=== PATIENT | female | born 1930 | race Caucasian/White ===

== ENCOUNTER 2016-10-04 13:32 | Emergency (ER) | payer MEDICARE ==
[~2016-10-04] VITALS: Ht 160 cm; Wt 42.0 kg
[~2016-10-04 13:32] MED LIST: AMLO5TAB2 PO; CEFD300C37 PO; CHLO25TA PO; CLON0.1T PO; NEBI20TA2 PO; POTA10TA90 PO; TELM80TA5 PO
[2016-10-04] MEDS ORDERED: SODIUM CHLORIDE 0.9% 1,000ML IVBOLUS ONE (14:00)
[2016-10-04] MEDS ORDERED: SODIUM CHLORIDE FLUSH 10ML SYR IVF ONE (14:00)
[2016-10-04 14:44] LABS: BLOOD UREA NITROGEN 19 mg/dL (7-18)
[2016-10-04 14:49] LABS: ASPARTATE AMINO TRANSFERASE 33 U/L (15-37)
[2016-10-04 14:50] LABS: IS PT STATUS REG ER OR PRE ER? YES
[2016-10-04 15:54] LABS: PATH.CAST-FLAG NOT PRESENT; SPERM-FLAG NOT PRESENT; SRC-FLAG NOT PRESENT; XTAL-FLAG NOT PRESENT; YLC-FLAG NOT PRESENT
[2016-10-04 16:53] VITALS: BP 178/78
[2016-10-04] MEDS ORDERED: hydrALAzine 20 MG/ML, 1ML ONE (17:00)
[2016-10-04] MEDS ORDERED: hydrALAzine 20 MG/ML, 1ML IV ONE (17:00)
[2016-10-04] MEDS ORDERED: CEFDINIR 300 MG CAPSULE PO ONE (17:30)
== END 2016-10-04 17:51 | disposition left against medical advice (07) ==
LOC: ED 15:14
DX: R53.1 Weakness (principal); N39.0 Urinary tract infection, site not specified; R41.82 Altered mental status, unspecified; I10 Essential (primary) hypertension; R51 Headache
CPT/HCPCS: 36415; 70450; 71010; 80053; 81001; 84484; 85025; 87086; 93005; 96374; 99285; J0360; J7030

== ENCOUNTER 2016-12-08 11:31 | Inpatient (IN) | payer MEDICARE ==
[~2016-12-08] VITALS: Ht 160 cm; Wt 44.3 kg
[~2016-12-08 11:31] MED LIST changes: +POTA10TA6 PO; -POTA10TA90 PO
[2016-12-08] MEDS ORDERED: SODIUM CHLORIDE 0.9% 1,000 ML IV ONE ×2 (12:59→14:16)
[2016-12-08] MEDS ORDERED: SODIUM CHLORIDE 0.9% 1,000ML IVBOLUS ONE (13:00)
[2016-12-08] MEDS ORDERED: SODIUM CHLORIDE FLUSH 10ML SYR IVF ONE (13:00)
[2016-12-08 13:23] LABS: HEMATOCRIT 43.5 % (34.6-47.8); HEMOGLOBIN 14.9 g/dL (11.7-16.4); WHITE BLOOD COUNT 6.7 x10^3/uL (3.4-10)
[2016-12-08 13:36] LABS: ASPARTATE AMINO TRANSFERASE 37 U/L (15-37); BLOOD UREA NITROGEN 23 mg/dL (7-18)
[2016-12-08 14:01] LABS: PATH.CAST-FLAG NOT PRESENT; SPERM-FLAG NOT PRESENT; SRC-FLAG NOT PRESENT; XTAL-FLAG NOT PRESENT; YLC-FLAG NOT PRESENT
[2016-12-08] MEDS ORDERED: CEFTRIAXONE PMX 1GM/50ML 50 ML IV ONE (14:30)
[2016-12-08] MEDS ORDERED: SODIUM CHLORIDE FLUSH 10ML SYR IVF PRN (14:30)
[2016-12-08] MEDS ORDERED: CEFTRIAXONE PMX 1GM/50ML 50 ML ONE (14:48)
[2016-12-08] MEDS: AMPICILLIN/SULBACTAM 3 GM in SODIUM CHLORIDE 0.9% 100 ML IV SCH ×2 (16:00→22:16)
[2016-12-08] MEDS ORDERED: ENOXAPARIN 40 MG/0.4 ML SQ SCH (16:00)
[2016-12-08] MEDS ORDERED: ENALAPRILAT 1.25 MG/ML, 2ML IVPush PRN (16:00)
[2016-12-08] MEDS ORDERED: ONDANSETRON ODT 4 MG PO PRN (16:00)
[2016-12-08] MEDS ORDERED: ACETAMINOPHEN 325 MG TABLET PO PRN (16:00)
[2016-12-08 20:56] VITALS: BP 169/90
[2016-12-08] MEDS: DOCUSATE 100 MG CAPSULE PO PRN (20:59)
[2016-12-08] MEDS: NEBIVOLOL HCL 5 MG TABLET PO SCH (20:59)
[2016-12-08] MEDS: TEMAZEPAM 15 MG CAPSULE PO PRN (21:02)
[2016-12-08 21:20] VITALS: BP 169/90
[2016-12-09 01:08] VITALS: BP 173/92
[2016-12-09] MEDS: LABETALOL 5MG/ML, 20ML IVPush PRN ×2 (01:44→08:16)
[2016-12-09 03:00] VITALS: BP 169/89
[2016-12-09] MEDS: AMPICILLIN/SULBACTAM 3 GM in SODIUM CHLORIDE 0.9% 100 ML IV SCH ×4 (04:40→21:49)
[2016-12-09 08:08] VITALS: BP 179/83
[2016-12-09 08:10] LABS: BLOOD UREA NITROGEN 14 mg/dL (7-18)
[2016-12-09] MEDS: AMLODIPINE 2.5 MG TABLET PO SCH (08:17)
[2016-12-09] MEDS: VALSARTAN 80 MG TABLET PO SCH (08:17)
[2016-12-09 14:00] VITALS: BP 149/93
[2016-12-09] MEDS ORDERED: ENOXAPARIN 30 MG/0.3 ML SQ SCH (16:00)
[2016-12-09] MEDS: POTASSIUM CHLORIDE 20 MEQ TAB.ER.PRT PO SCH (16:13)
[2016-12-09 21:59] VITALS: BP 188/102
[2016-12-09] MEDS: DOCUSATE 100 MG CAPSULE PO PRN (22:01)
[2016-12-09] MEDS: NEBIVOLOL HCL 5 MG TABLET PO SCH (22:01)
[2016-12-09] MEDS: TEMAZEPAM 15 MG CAPSULE PO PRN (22:01)
[2016-12-10 02:15] VITALS: BP 163/90
[2016-12-10] MEDS: AMPICILLIN/SULBACTAM 3 GM in SODIUM CHLORIDE 0.9% 100 ML IV SCH ×2 (04:42→09:41)
[2016-12-10 09:27] VITALS: BP 185/85
[2016-12-10] MEDS: AMLODIPINE 2.5 MG TABLET PO SCH (09:38)
[2016-12-10] MEDS: VALSARTAN 80 MG TABLET PO SCH (09:38)
[2016-12-10] MEDS: POTASSIUM CHLORIDE 20 MEQ TAB.ER.PRT PO SCH (09:39)
[2016-12-10] MEDS ORDERED: VALS80TA3 PO (10:41)
[2016-12-10] MEDS ORDERED: AMLO5TAB2 PO (10:41)
[2016-12-10] MEDS ORDERED: AMOX1TAB64 PO (10:41)
[2016-12-10 12:00] VITALS: BP 156/79
[2016-12-10 12:50] VITALS: BP 170/73
== END 2016-12-10 14:35 | disposition home health service (06) | DRG 593 ==
LOC: ED 13:27 → EDIP 14:16 → 3WST 20:14 → 3NE 12-10 11:46
PROVIDERS: ADMIT Hospitalist; ATTEND Hospitalist
DX: L97.819 Non-pressure chronic ulcer of other part of right lower leg with unspecified severity (principal); N39.0 Urinary tract infection, site not specified; F03.90 Unspecified dementia, unspecified severity, without behavioral disturbance, psychotic disturbance, mood disturbance, and anxiety; E44.1 Mild protein-calorie malnutrition; E87.1 Hypo-osmolality and hyponatremia; J44.9 Chronic obstructive pulmonary disease, unspecified; I10 Essential (primary) hypertension; E87.6 Hypokalemia; Z85.118 Personal history of other malignant neoplasm of bronchus and lung; Z91.81 History of falling; Z90.49 Acquired absence of other specified parts of digestive tract; Z90.710 Acquired absence of both cervix and uterus; Z79.899 Other long term (current) drug therapy
CPT/HCPCS: 36415; 80048; 80053; 81001; 83605; 84145; 85025; 87040; 87086; 93922; 96360; 96361; J0295; J0696; J1650; Q0162; J7030

== ENCOUNTER → 2016-12-15 | Outpatient (CLI) | payer MEDICARE ==
[~2016-12-15] MED LIST changes: +AMOX1TAB64 PO; +VALS80TA3 PO
== END | disposition home or self-care (01) ==
LOC: WOUND 08:27
PROVIDERS: ATTEND Family Medicine
DX: L97.212 Non-pressure chronic ulcer of right calf with fat layer exposed (principal); I83.813 Varicose veins of bilateral lower extremities with pain; F03.90 Unspecified dementia, unspecified severity, without behavioral disturbance, psychotic disturbance, mood disturbance, and anxiety; J44.9 Chronic obstructive pulmonary disease, unspecified; I10 Essential (primary) hypertension; Z90.710 Acquired absence of both cervix and uterus
CPT/HCPCS: 97597; G0463; 99215; WOU0463

== ENCOUNTER → 2016-12-22 | Outpatient (CLI) | payer MEDICARE | END | disposition home or self-care (01) | LOC: WOUND 10:59 | PROVIDERS: ATTEND Physician Assistant | DX: L97.212 Non-pressure chronic ulcer of right calf with fat layer exposed (principal); I83.813 Varicose veins of bilateral lower extremities with pain; F03.90 Unspecified dementia, unspecified severity, without behavioral disturbance, psychotic disturbance, mood disturbance, and anxiety; Z90.710 Acquired absence of both cervix and uterus; J44.9 Chronic obstructive pulmonary disease, unspecified; I10 Essential (primary) hypertension | CPT/HCPCS: G0463; WOU0463 ==

== ENCOUNTER 2017-02-10 11:14 | Emergency (ER) | payer MEDICARE ==
[~2017-02-10] VITALS: Ht 160 cm; Wt 43.0 kg
[2017-02-10 11:21] VITALS: BP 147/91
[2017-02-10] MEDS ORDERED: SODIUM CHLORIDE FLUSH 10ML SYR IVF ONE (12:30)
[2017-02-10 12:53] LABS: HEMATOCRIT 40.8 % (34.6-47.8); HEMOGLOBIN 13.7 g/dL (11.7-16.4); WHITE BLOOD COUNT 10.9 x10^3/uL (3.4-10)
[2017-02-10] MEDS ORDERED: SODIUM CHLORIDE 0.9% 1,000ML IVBOLUS ONE (13:00)
[2017-02-10] MEDS ORDERED: AMPICILLIN/SULBACTAM 3 GM in SODIUM CHLORIDE 0.9% 100 ML IV ONE (13:00)
[2017-02-10 13:33] LABS: BLOOD UREA NITROGEN 16 mg/dL (7-18)
== END 2017-02-10 16:59 | disposition home or self-care (01) ==
LOC: ED 14:06
DX: S81.851A Open bite, right lower leg, initial encounter (principal); L03.818 Cellulitis of other sites; L03.115 Cellulitis of right lower limb; I10 Essential (primary) hypertension; E87.6 Hypokalemia; E87.1 Hypo-osmolality and hyponatremia; Z90.710 Acquired absence of both cervix and uterus; W55.01XA Bitten by cat, initial encounter; Y93.89 Activity, other specified; Y92.89 Other specified places as the place of occurrence of the external cause; Y99.9 Unspecified external cause status
CPT/HCPCS: 36415; 73590; 80048; 82040; 85025; 96374; 99285; J0295; J7030

== ENCOUNTER 2017-02-12 11:57 | Inpatient (IN) | payer MEDICARE ==
[~2017-02-12] VITALS: Ht 160 cm; Wt 52.4 kg
[2017-02-12] MEDS ORDERED: SODIUM CHLORIDE FLUSH 10ML SYR IVF ONE (13:30)
[2017-02-12] MEDS ORDERED: SODIUM CHLORIDE 0.9% 1,000ML IVBOLUS ONE (13:30)
[2017-02-12 14:09] LABS: HEMATOCRIT 38.6 % (34.6-47.8); HEMOGLOBIN 13.3 g/dL (11.7-16.4); WHITE BLOOD COUNT 8.1 x10^3/uL (3.4-10)
[2017-02-12 14:38] LABS: ASPARTATE AMINO TRANSFERASE 28 U/L (15-37); BLOOD UREA NITROGEN 21 mg/dL (7-18)
[2017-02-12] MEDS ORDERED: LORazepam 1MG TABLET ONE (17:08)
[2017-02-12] MEDS ORDERED: LORazepam 1MG TABLET PO ONE (17:30)
[2017-02-12] MEDS ORDERED: SODIUM CHLORIDE FLUSH 10ML SYR IVF PRN (17:30)
[2017-02-12] MEDS ORDERED: POLYETHYLENE GLYCOL 17 GM PACKET PO PRN (18:30)
[2017-02-12] MEDS ORDERED: BISACODYL 10 MG SUPP PR PRN (18:30)
[2017-02-12] MEDS ORDERED: ENALAPRILAT 1.25 MG/ML, 2ML IVPush PRN (18:30)
[2017-02-12] MEDS ORDERED: DOCUSATE 100 MG CAPSULE PO PRN (18:30)
[2017-02-12 18:38] VITALS: BP 183/83
[2017-02-12] MEDS: SODIUM CHLORIDE 0.9% 1,000 ML IV SCH (18:38)
[2017-02-12] MEDS: ENOXAPARIN 40 MG/0.4 ML SQ SCH (21:00)
[2017-02-12] MEDS: AMPICILLIN/SULBACTAM 1,500 MG in SODIUM CHLORIDE 0.9% 50 ML IV SCH (21:06)
[2017-02-12 21:10] VITALS: BP 183/83
[2017-02-12 21:15] LABS: PATH.CAST-FLAG NOT PRESENT; SPERM-FLAG NOT PRESENT; SRC-FLAG NOT PRESENT; XTAL-FLAG NOT PRESENT; YLC-FLAG NOT PRESENT
[2017-02-13] MEDS ORDERED: LORazepam 1MG TABLET PO ONE (00:30)
[2017-02-13 02:00] VITALS: BP 188/90
[2017-02-13 04:51] LABS: HEMATOCRIT 34.2 % (34.6-47.8); HEMOGLOBIN 11.8 g/dL (11.7-16.4); WHITE BLOOD COUNT 5.8 x10^3/uL (3.4-10)
[2017-02-13 04:54] LABS: BLOOD UREA NITROGEN 14 mg/dL (7-18)
[2017-02-13] MEDS: AMPICILLIN/SULBACTAM 1,500 MG in SODIUM CHLORIDE 0.9% 50 ML IV SCH ×2 (04:56→13:03)
[2017-02-13 05:05] LABS: ASPARTATE AMINO TRANSFERASE 20 U/L (15-37)
[2017-02-13 07:20] VITALS: BP 178/81
[2017-02-13] MEDS: NEBIVOLOL HCL 5 MG TABLET PO SCH ×2 (08:33→08:42)
[2017-02-13] MEDS: AMLODIPINE 5 MG TABLET PO SCH ×2 (08:33→08:42)
[2017-02-13] MEDS: SODIUM CHLORIDE 0.9% 1,000 ML IV SCH (08:34)
[2017-02-13] MEDS: NEUTRA PHOS K 250 MG TABLET PO SCH ×3 (08:40→21:10)
[2017-02-13] MEDS ORDERED: NEBIVOLOL HCL 5 MG TABLET PO SCH (09:00)
[2017-02-13] MEDS ORDERED: AMLODIPINE 5 MG TABLET PO SCH (09:00)
[2017-02-13 13:45] VITALS: BP 164/70
[2017-02-13] MEDS ORDERED: LORazepam 0.5MG TABLET ONE (17:58)
[2017-02-13] MEDS ORDERED: LORazepam 0.5MG TABLET PO ONE (18:00)
[2017-02-13] MEDS: ACETAMINOPHEN 325 MG TABLET PO PRN (18:07)
[2017-02-13 18:40] VITALS: BP 167/83
[2017-02-13] MEDS: ENOXAPARIN 40 MG/0.4 ML SQ SCH (20:48)
[2017-02-13] MEDS: AMOXICILLIN/CLAV 875-125MG TABLET PO SCH (21:10)
[2017-02-14 01:32] VITALS: BP 155/83
[2017-02-14 04:50] LABS: HEMATOCRIT 35.4 % (34.6-47.8); HEMOGLOBIN 12.1 g/dL (11.7-16.4); WHITE BLOOD COUNT 5.2 x10^3/uL (3.4-10)
[2017-02-14 04:59] LABS: BLOOD UREA NITROGEN 12 mg/dL (7-18)
[2017-02-14 08:06] VITALS: BP 164/85
[2017-02-14] MEDS: AMOXICILLIN/CLAV 875-125MG TABLET PO SCH ×2 (10:48→21:36)
[2017-02-14] MEDS: NEBIVOLOL HCL 5 MG TABLET PO SCH (10:48)
[2017-02-14] MEDS: AMLODIPINE 5 MG TABLET PO SCH (10:48)
[2017-02-14 13:46] VITALS: BP 145/75
[2017-02-14] MEDS: ACETAMINOPHEN 325 MG TABLET PO PRN (15:28)
[2017-02-14] MEDS ORDERED: POTASSIUM CHLORIDE 20 MEQ TAB.ER.PRT PO ONE (16:00)
[2017-02-14 16:38] LABS: BLOOD UREA NITROGEN 15 mg/dL (7-18)
[2017-02-14 16:43] LABS: HEMATOCRIT 34.8 % (34.6-47.8); HEMOGLOBIN 12.1 g/dL (11.7-16.4)
[2017-02-14 18:48] VITALS: BP 135/75
[2017-02-14] MEDS: ENOXAPARIN 40 MG/0.4 ML SQ SCH (21:00)
[2017-02-14] MEDS: metroNIDAZOLE 500 MG TABLET PO SCH (21:36)
[2017-02-15 01:40] VITALS: BP 134/80
[2017-02-15 03:58] LABS: WHITE BLOOD COUNT 5.8 x10^3/uL (3.4-10)
[2017-02-15 04:14] LABS: BLOOD UREA NITROGEN 13 mg/dL (7-18)
[2017-02-15 06:42] VITALS: BP 160/84
[2017-02-15] MEDS: NEBIVOLOL HCL 5 MG TABLET PO SCH (09:14)
[2017-02-15] MEDS: metroNIDAZOLE 500 MG TABLET PO SCH ×2 (09:14→20:26)
[2017-02-15] MEDS: ACETAMINOPHEN 325 MG TABLET PO PRN (09:14)
[2017-02-15] MEDS: AMLODIPINE 5 MG TABLET PO SCH (09:14)
[2017-02-15] MEDS: AMOXICILLIN/CLAV 875-125MG TABLET PO SCH ×2 (09:14→20:26)
[2017-02-15 14:00] VITALS: BP 130/69
[2017-02-15 19:13] VITALS: BP 143/81
[2017-02-15] MEDS: LORazepam 1MG TABLET PO PRN (19:36)
[2017-02-15] MEDS: ENOXAPARIN 40 MG/0.4 ML SQ SCH (20:28)
[2017-02-16 04:19] VITALS: BP 136/72
[2017-02-16 05:24] LABS: HEMATOCRIT 37.6 % (34.6-47.8); HEMOGLOBIN 13.1 g/dL (11.7-16.4); WHITE BLOOD COUNT 6.4 x10^3/uL (3.4-10)
[2017-02-16 05:32] LABS: BLOOD UREA NITROGEN 13 mg/dL (7-18)
[2017-02-16 08:00] VITALS: BP 161/85
[2017-02-16] MEDS: AMOXICILLIN/CLAV 875-125MG TABLET PO SCH ×2 (09:42→21:11)
[2017-02-16] MEDS: NEBIVOLOL HCL 5 MG TABLET PO SCH (09:43)
[2017-02-16] MEDS: AMLODIPINE 5 MG TABLET PO SCH (09:43)
[2017-02-16] MEDS: metroNIDAZOLE 500 MG TABLET PO SCH ×2 (09:43→21:11)
[2017-02-16] MEDS: ACETAMINOPHEN 325 MG TABLET PO PRN (11:12)
[2017-02-16 14:00] VITALS: BP 139/77
[2017-02-16] MEDS: LORazepam 1MG TABLET PO PRN (17:27)
[2017-02-16 20:01] VITALS: BP 130/78
[2017-02-16] MEDS: ENOXAPARIN 40 MG/0.4 ML SQ SCH (21:00)
[2017-02-17 00:20] VITALS: BP 128/71
[2017-02-17] MEDS: LORazepam 1MG TABLET PO PRN ×2 (01:17→06:22)
[2017-02-17 05:33] LABS: HEMOGLOBIN 12.8 g/dL (11.7-16.4); WHITE BLOOD COUNT 5.6 x10^3/uL (3.4-10)
[2017-02-17 05:37] LABS: BLOOD UREA NITROGEN 15 mg/dL (7-18)
[2017-02-17 06:53] VITALS: BP 126/74
[2017-02-17] MEDS: AMOXICILLIN/CLAV 875-125MG TABLET PO SCH (08:05)
[2017-02-17] MEDS: NEBIVOLOL HCL 5 MG TABLET PO SCH (08:06)
[2017-02-17] MEDS: metroNIDAZOLE 500 MG TABLET PO SCH (08:06)
[2017-02-17] MEDS: AMLODIPINE 5 MG TABLET PO SCH (08:06)
[2017-02-17] MEDS ORDERED: METR500T PO (11:25)
[2017-02-17] MEDS ORDERED: AMLO5TAB2 PO (11:25)
[2017-02-17] MEDS ORDERED: AMOX1TAB12 PO (11:25)
[2017-02-17] MEDS ORDERED: NEBI5TAB2 PO (11:25)
[2017-02-17] MEDS ORDERED: ACID1TAB3 PO (11:25)
[2017-02-17 13:27] VITALS: BP 147/74
== END 2017-02-17 20:05 | disposition home health service (06) | DRG 602 ==
LOC: ED 15:12 → EDIP 17:11 → 3NE 18:15
PROVIDERS: ADMIT Internal Medicine; ATTEND Internal Medicine
DX: L03.115 Cellulitis of right lower limb (principal); E43 Unspecified severe protein-calorie malnutrition; B96.89 Other specified bacterial agents as the cause of diseases classified elsewhere; L97.919 Non-pressure chronic ulcer of unspecified part of right lower leg with unspecified severity; F03.90 Unspecified dementia, unspecified severity, without behavioral disturbance, psychotic disturbance, mood disturbance, and anxiety; J44.9 Chronic obstructive pulmonary disease, unspecified; E83.39 Other disorders of phosphorus metabolism; I10 Essential (primary) hypertension; I16.0 Hypertensive urgency; E83.51 Hypocalcemia; E87.6 Hypokalemia; N76.0 Acute vaginitis; Z66 Do not resuscitate; Z85.118 Personal history of other malignant neoplasm of bronchus and lung; Z90.49 Acquired absence of other specified parts of digestive tract; Z90.710 Acquired absence of both cervix and uterus; Z68.20 Body mass index [BMI] 20.0-20.9, adult
CPT/HCPCS: 36415; 80048; 80053; 81001; 83735; 84100; 84439; 84443; 85025; 86480; 87040; 87070; 87077; 87086; 87186; 87205; 96360; J0295; J7030

== ENCOUNTER 2017-03-17 22:20 | Emergency (ER) | payer MEDICARE ==
[~2017-03-17] VITALS: Ht 160 cm; Wt 45.4 kg
[~2017-03-17 22:20] MED LIST changes: +ACID1TAB3 PO; +AMOX1TAB12 PO; +METR500T PO; +NEBI5TAB2 PO
[2017-03-17 23:29] LABS: BASOPHILS # (AUTO) 0.08 x10^3/uL (0-0.1); BASOPHILS % (AUTO) 1 % (0-1); EOSINOPHILS # (AUTO) 0.03 x10^3/uL (0-0.4); EOSINOPHILS % (AUTO) 0 % (1-7); LYMPHOCYTES # (AUTO) 0.88 x10^3/uL (1-3.4); LYMPHOCYTES % (AUTO) 6 % (22-44); MD NO; MEAN CORPUSCULAR HEMOGLOBIN 30.2 pg (27.0-34.8); MEAN CORPUSCULAR HGB CONC 33.7 g/dL (32.4-35.8); MEAN CORPUSCULAR VOLUME 89.6 fL (80-100); MEAN PLATELET VOLUME 7.6 fL (7.4-10.4); MONOCYTES # (AUTO) 1.14 x10^3/uL (0.2-0.8); MONOCYTES % (AUTO) 8 % (2-9); NEUTROPHILS # (AUTO) 12.06 x10^3/uL (1.8-6.8); NEUTROPHILS % (AUTO) 85 % (42-75); PLATELET COUNT 270 x10^3/uL (130-400); RED BLOOD COUNT 4.53 x10^6/uL (3.82-5.3); RED CELL DISTRIBUTION WIDTH 13.8 % (9.6-15.2)
[2017-03-17 23:42] LABS: ALBUMIN 3.8 g/dL (3.4-5.0); ANION GAP 10 mmol/L (5-15); CALCIUM 9.3 mg/dL (8.5-10.1); CHLORIDE 96 mmol/L (98-107); CREATININE 0.83 mg/dL (0.55-1.02)
[2017-03-17 23:46] LABS: TROPONIN I < 0.015 ng/mL (0.000-0.045)
[2017-03-18] MEDS ORDERED: ACETAMINOPHEN 325 MG TABLET PO ONE (00:30)
[2017-03-18 00:31] LABS: MICROSCOPIC AUTO
[2017-03-18 00:37] LABS: CULTURE INDICATED? NO
[2017-03-18 00:37] LABS: RAPID INFLUENZA A Negative (Negative); RAPID INFLUENZA B Negative (Negative)
[2017-03-18] MEDS ORDERED: ACETAMINOPHEN 325 MG TABLET ONE (01:43)
[2017-03-18 01:48] VITALS: BP 140/72
== END 2017-03-18 01:47 | disposition home or self-care (01) ==
LOC: ED 23:55
DX: M79.661 Pain in right lower leg (principal); I10 Essential (primary) hypertension; Z90.49 Acquired absence of other specified parts of digestive tract; Z90.710 Acquired absence of both cervix and uterus
CPT/HCPCS: 36415; 71045; 80048; 81001; 82040; 84484; 85025; 87400; 93005; 99285

== ENCOUNTER 2017-09-11 12:04 | Inpatient (IN) | payer MEDICARE ==
[~2017-09-11] VITALS: Ht 160 cm; Wt 47.3 kg
[2017-09-11] MEDS ORDERED: NEBI20TA2 PO (12:18)
[2017-09-11] MEDS ORDERED: AMLO10TA2 PO (12:18)
[2017-09-11] MEDS ORDERED: ACET325T14 PO (12:18)
[2017-09-11] MEDS ORDERED: VALS80TA3 PO (12:18)
[2017-09-11] MEDS ORDERED: DONE5TAB14 PO (12:18)
[2017-09-11] MEDS ORDERED: LACT-7 PO (12:18)
[2017-09-11 12:55] LABS: BASOPHILS # (AUTO) 0.02 x10^3/uL (0-0.1); BASOPHILS % (AUTO) 0 % (0-1); EOSINOPHILS # (AUTO) 0.02 x10^3/uL (0-0.4); EOSINOPHILS % (AUTO) 0 % (1-7); LYMPHOCYTES # (AUTO) 0.66 x10^3/uL (1-3.4); LYMPHOCYTES % (AUTO) 9 % (22-44); MD NO; MEAN CORPUSCULAR HEMOGLOBIN 29.9 pg (27.0-34.8); MEAN CORPUSCULAR HGB CONC 33.7 g/dL (32.4-35.8); MEAN CORPUSCULAR VOLUME 88.6 fL (80-100); MEAN PLATELET VOLUME 8.1 fL (7.4-10.4); MONOCYTES # (AUTO) 1.01 x10^3/uL (0.2-0.8); MONOCYTES % (AUTO) 14 % (2-9); NEUTROPHILS # (AUTO) 5.55 x10^3/uL (1.8-6.8); NEUTROPHILS % (AUTO) 77 % (42-75); PLATELET COUNT 175 x10^3/uL (130-400); RED BLOOD COUNT 4.81 x10^6/uL (3.82-5.3); RED CELL DISTRIBUTION WIDTH 15.5 % (9.6-15.2)
[2017-09-11 13:04] LABS: ALANINE AMINOTRANSFERASE 30 U/L (12-78); ALBUMIN 3.5 g/dL (3.4-5.0); ANION GAP 8 mmol/L (5-15); CALCIUM 8.8 mg/dL (8.5-10.1); CHLORIDE 105 mmol/L (98-107); CREATININE 0.86 mg/dL (0.55-1.02)
[2017-09-11 13:08] LABS: ALKALINE PHOSPHATASE 122 U/L (45-117); TOTAL PROTEIN 7.5 g/dL (6.4-8.2); TROPONIN I < 0.015 ng/mL (0.000-0.045)
[2017-09-11 13:54] LABS: MICROSCOPIC INDICATED
[2017-09-11 14:03] LABS: CULTURE INDICATED? YES
[2017-09-11] MEDS ORDERED: ACETAMINOPHEN 325 MG TABLET PO PRN (15:00)
[2017-09-11] MEDS ORDERED: ENOXAPARIN 40 MG/0.4 ML SQ SCH (15:00)
[2017-09-11] MEDS ORDERED: DOCUSATE 100 MG CAPSULE PO PRN (15:00)
[2017-09-11] MEDS ORDERED: ONDANSETRON ODT 4 MG PO PRN (15:00)
[2017-09-11] MEDS ORDERED: ENALAPRILAT 1.25 MG/ML, 2ML IV PRN (15:00)
[2017-09-11] MEDS ORDERED: hydrALAzine 20 MG/ML, 1ML IVPush PRN (15:00)
[2017-09-11 15:11] VITALS: BP 181/105
[2017-09-11 15:12] VITALS: BP 181/105
[2017-09-11 15:15] LABS: THYROID STIMULATING HORMONE 3.75 mIU/L (0.358-3.740)
[2017-09-11] MEDS: AMLODIPINE 5 MG TABLET PO SCH (15:56)
[2017-09-11 17:16] VITALS: BP 157/78
[2017-09-11] MEDS: CEFTRIAXONE 1,000 MG in SODIUM CHLORIDE 0.9% 50 ML IV SCH (17:35)
[2017-09-11 20:00] VITALS: BP 120/71
[2017-09-11 20:41] VITALS: BP_SYST 119; BP_SYST 122; BP_SYST 130; BP_DIAS 68; BP_DIAS 73
[2017-09-12 00:25] VITALS: BP 137/67
[2017-09-12 05:39] LABS: BASOPHILS # (AUTO) 0.01 x10^3/uL (0-0.1); BASOPHILS % (AUTO) 0 % (0-1); EOSINOPHILS # (AUTO) 0.03 x10^3/uL (0-0.4); EOSINOPHILS % (AUTO) 1 % (1-7); LYMPHOCYTES # (AUTO) 1.27 x10^3/uL (1-3.4); LYMPHOCYTES % (AUTO) 21 % (22-44); MD NO; MEAN CORPUSCULAR HEMOGLOBIN 29.7 pg (27.0-34.8); MEAN CORPUSCULAR HGB CONC 33.5 g/dL (32.4-35.8); MEAN CORPUSCULAR VOLUME 88.6 fL (80-100); MEAN PLATELET VOLUME 8.1 fL (7.4-10.4); MONOCYTES # (AUTO) 1.17 x10^3/uL (0.2-0.8); MONOCYTES % (AUTO) 19 % (2-9); NEUTROPHILS # (AUTO) 3.69 x10^3/uL (1.8-6.8); NEUTROPHILS % (AUTO) 60 % (42-75); PLATELET COUNT 177 x10^3/uL (130-400); RED BLOOD COUNT 4.23 x10^6/uL (3.82-5.3); RED CELL DISTRIBUTION WIDTH 15.7 % (9.6-15.2)
[2017-09-12 05:47] LABS: CALCIUM 8.5 mg/dL (8.5-10.1); CHLORIDE 106 mmol/L (98-107)
[2017-09-12 06:01] LABS: ANION GAP 8 mmol/L (5-15); CREATININE 0.69 mg/dL (0.55-1.02)
[2017-09-12] MEDS ORDERED: POTASSIUM CHLORIDE 10% 40 MEQ/30 ML UDC PO ONE (07:00)
[2017-09-12 07:56] VITALS: BP 118/71
[2017-09-12] MEDS: ENOXAPARIN 30 MG/0.3 ML SQ SCH (09:20)
[2017-09-12] MEDS: AMLODIPINE 5 MG TABLET PO SCH (09:20)
[2017-09-12 13:34] VITALS: BP 139/76
[2017-09-12] MEDS: CEFTRIAXONE 1,000 MG in SODIUM CHLORIDE 0.9% 50 ML IV SCH (13:36)
[2017-09-12 18:26] VITALS: BP 147/74
[2017-09-13 04:57] VITALS: BP 133/78
[2017-09-13 06:35] VITALS: BP 144/68
[2017-09-13] MEDS: POTASSIUM CHLORIDE 20 MEQ PACKET PO SCH ×2 (09:04→17:19)
[2017-09-13] MEDS: SULFAMETH./TRIMETHOPRIM DS 800MG/160MG TABLET PO SCH ×2 (09:04→21:14)
[2017-09-13] MEDS: AMLODIPINE 5 MG TABLET PO SCH (09:04)
[2017-09-13] MEDS: ENOXAPARIN 30 MG/0.3 ML SQ SCH (09:05)
[2017-09-13] MEDS: METOPROLOL TARTRATE 25 MG TABLET PO SCH ×2 (09:43→17:19)
[2017-09-13] MEDS: ASPIRIN 81 MG TABLET EC PO SCH (09:43)
[2017-09-13 12:05] VITALS: BP 118/66
[2017-09-13 19:31] VITALS: BP 123/71
[2017-09-14 02:51] VITALS: BP 124/64
[2017-09-14 05:40] LABS: CHLORIDE 105 mmol/L (98-107)
[2017-09-14 05:49] LABS: ALANINE AMINOTRANSFERASE 24 U/L (12-78); ALBUMIN 2.8 g/dL (3.4-5.0); ALKALINE PHOSPHATASE 89 U/L (45-117); ANION GAP 8 mmol/L (5-15); BILIRUBIN,TOTAL 0.5 mg/dL (0.2-1.0); CALCIUM 8.5 mg/dL (8.5-10.1); CREATININE 0.74 mg/dL (0.55-1.02); TOTAL PROTEIN 6.5 g/dL (6.4-8.2)
[2017-09-14] MEDS: ASPIRIN 81 MG TABLET EC PO SCH (06:15)
[2017-09-14] MEDS: METOPROLOL TARTRATE 25 MG TABLET PO SCH (06:15)
[2017-09-14 06:57] VITALS: BP 114/56
[2017-09-14] MEDS: ENOXAPARIN 30 MG/0.3 ML SQ SCH (08:35)
[2017-09-14] MEDS: AMLODIPINE 5 MG TABLET PO SCH (08:35)
[2017-09-14] MEDS: SULFAMETH./TRIMETHOPRIM DS 800MG/160MG TABLET PO SCH (08:35)
[2017-09-14] MEDS ORDERED: SULF-169 PO (10:55)
[2017-09-14] MEDS ORDERED: METO25TA35 PO (10:55)
[2017-09-14] MEDS ORDERED: ASPI-621 PO (10:55)
[2017-09-14 12:03] VITALS: BP 116/66
== END 2017-09-14 13:49 | disposition home or self-care (01) | DRG 74 ==
LOC: ED 13:55 → EDIP 13:56 → ED 14:02 → 4EST 14:50 → DCLOUNGE 09-14 13:36
PROVIDERS: ADMIT Internal Medicine; ATTEND Hospitalist
DX: G90.8 Other disorders of autonomic nervous system (principal); N39.0 Urinary tract infection, site not specified; E44.0 Moderate protein-calorie malnutrition; I48.0 Paroxysmal atrial fibrillation; F03.90 Unspecified dementia, unspecified severity, without behavioral disturbance, psychotic disturbance, mood disturbance, and anxiety; I11.9 Hypertensive heart disease without heart failure; J44.9 Chronic obstructive pulmonary disease, unspecified; R29.6 Repeated falls; S80.01XA Contusion of right knee, initial encounter; X58.XXXA Exposure to other specified factors, initial encounter; Y93.89 Activity, other specified; Y92.89 Other specified places as the place of occurrence of the external cause; Y99.8 Other external cause status; Z77.22 Contact with and (suspected) exposure to environmental tobacco smoke (acute) (chronic); Z85.118 Personal history of other malignant neoplasm of bronchus and lung; Z90.710 Acquired absence of both cervix and uterus; M11.20 Other chondrocalcinosis, unspecified site
CPT/HCPCS: 36415; 70450; 71045; 80048; 80053; 81001; 83735; 84439; 84443; 84484; 85025; 87086; 93005; 93306; 93880; 99285; J0696; J1650; J0360

== ENCOUNTER 2017-12-14 10:35 | Inpatient (IN) | payer MEDICARE ==
[~2017-12-14] VITALS: Ht 160 cm; Wt 46.8 kg
[~2017-12-14 10:35] MED LIST changes: +ACET325T14 PO; +AMLO10TA6 PO; -AMLO5TAB2 PO; +AMLO5TAB7 PO; +ASPI-621 PO; +DONE5TAB14 PO; +LACT-7 PO; +METO25TA35 PO; -NEBI5TAB2 PO; +NEBI5TAB3 PO; +SULF-169 PO; -TELM80TA5 PO; +TELM80TA8 PO
[2017-12-14] MEDS ORDERED: VALS1TAB3 PO (11:14)
[2017-12-14] MEDS ORDERED: NEBI20TA2 PO (11:14)
[2017-12-14 12:22] LABS: MICROSCOPIC INDICATED
[2017-12-14 12:27] LABS: ALANINE AMINOTRANSFERASE 43 U/L (12-78); ALBUMIN 3.9 g/dL (3.4-5.0); ANION GAP 12 mmol/L (5-15); CALCIUM 9.3 mg/dL (8.5-10.1); CHLORIDE 103 mmol/L (98-107); CREATININE 1.16 mg/dL (0.55-1.02)
[2017-12-14 12:29] LABS: CULTURE INDICATED? NO
[2017-12-14 12:31] LABS: BASOPHILS # (AUTO) 0.06 x10^3/uL (0-0.1); BASOPHILS % (AUTO) 1 % (0-1); EOSINOPHILS # (AUTO) 0.02 x10^3/uL (0-0.4); EOSINOPHILS % (AUTO) 1 % (1-7); LYMPHOCYTES # (AUTO) 0.78 x10^3/uL (1-3.4); LYMPHOCYTES % (AUTO) 17 % (22-44); MD SCAN; MEAN CORPUSCULAR HEMOGLOBIN 31.5 pg (27.0-34.8); MEAN CORPUSCULAR HGB CONC 34.5 g/dL (32.4-35.8); MEAN CORPUSCULAR VOLUME 91.3 fL (80-100); MONOCYTES % (AUTO) 9 % (2-9); NEUTROPHILS # (AUTO) 3.32 x10^3/uL (1.8-6.8); NEUTROPHILS % (AUTO) 72 % (42-75); RED BLOOD COUNT 5.06 x10^6/uL (3.82-5.3); RED CELL DISTRIBUTION WIDTH 14.1 % (9.6-15.2)
[2017-12-14 12:33] LABS: ALKALINE PHOSPHATASE 127 U/L (45-117); BILIRUBIN,TOTAL 0.7 mg/dL (0.2-1.0); TOTAL PROTEIN 7.4 g/dL (6.4-8.2)
[2017-12-14 12:34] LABS: MEAN PLATELET VOLUME 11.4 fL (7.4-10.4); PLATELET COUNT 24 x10^3/uL (130-400)
[2017-12-14 12:58] LABS: TROPONIN I < 0.015 ng/mL (0.000-0.045)
[2017-12-14] MEDS ORDERED: POLYETHYLENE GLYCOL 17 GM PACKET PO PRN (14:00)
[2017-12-14] MEDS ORDERED: BISACODYL 10 MG SUPP PR PRN (14:00)
[2017-12-14] MEDS ORDERED: DOCUSATE 100 MG CAPSULE PO PRN (14:00)
[2017-12-14] MEDS ORDERED: ONDANSETRON 2MG/ML, 2ML IVPush PRN (14:00)
[2017-12-14] MEDS ORDERED: SODIUM CHLORIDE 0.9%, 500ML IVBOLUS ONE (14:00)
[2017-12-14] MEDS ORDERED: ACETAMINOPHEN 325 MG TABLET PO PRN (14:00)
[2017-12-14 14:15] LABS: ABSOLUTE RETICS # 0.063 x10^6/uL (0.5-2.5); RED BLOOD COUNT 4.75 x10^6/uL (3.82-5.3); RETICULOCYTE COUNT % 1.31 % (0.5-1.5)
[2017-12-14] MEDS ORDERED: NS + 20MEQ KCL 1,000 ML IV SCH (14:38)
[2017-12-14 15:00] VITALS: BP 190/93
[2017-12-14] MEDS: hydrALAzine 20 MG/ML, 1ML IVPush PRN (15:24)
[2017-12-14 15:45] VITALS: BP 190/93
[2017-12-14 15:59] LABS: D-DIMER 0.47 ug/mlFEU (0.00-0.52); INTERNATIONAL NORMALIZED RATIO 1.04 (0.93-1.1); PROTHROMBIN TIME 10.7 Seconds (9.6-11.5)
[2017-12-14 16:00] VITALS: BP 143/83
[2017-12-14 19:23] VITALS: BP 130/73
[2017-12-14] MEDS ORDERED: ASPI-621 PO (20:00)
[2017-12-15 02:00] VITALS: BP 135/75
[2017-12-15 05:44] LABS: BASOPHILS # (AUTO) 0.02 x10^3/uL (0-0.1); BASOPHILS % (AUTO) 0 % (0-1); EOSINOPHILS # (AUTO) 0.09 x10^3/uL (0-0.4); EOSINOPHILS % (AUTO) 2 % (1-7); LYMPHOCYTES # (AUTO) 1.42 x10^3/uL (1-3.4); LYMPHOCYTES % (AUTO) 28 % (22-44); MD NO; MEAN CORPUSCULAR HEMOGLOBIN 30.7 pg (27.0-34.8); MEAN CORPUSCULAR HGB CONC 34.1 g/dL (32.4-35.8); MEAN CORPUSCULAR VOLUME 90.1 fL (80-100); MONOCYTES # (AUTO) 0.56 x10^3/uL (0.2-0.8); MONOCYTES % (AUTO) 11 % (2-9); NEUTROPHILS # (AUTO) 2.99 x10^3/uL (1.8-6.8); NEUTROPHILS % (AUTO) 59 % (42-75); PLATELET COUNT 170 x10^3/uL (130-400); RED BLOOD COUNT 4.43 x10^6/uL (3.82-5.3); RED CELL DISTRIBUTION WIDTH 14.7 % (9.6-15.2)
[2017-12-15 05:56] LABS: ALANINE AMINOTRANSFERASE 32 U/L (12-78); ALBUMIN 3.4 g/dL (3.4-5.0); ANION GAP 8 mmol/L (5-15); CALCIUM 8.6 mg/dL (8.5-10.1); CHLORIDE 110 mmol/L (98-107); CREATININE 0.78 mg/dL (0.55-1.02)
[2017-12-15 05:58] LABS: ALKALINE PHOSPHATASE 94 U/L (45-117); BILIRUBIN,TOTAL 0.8 mg/dL (0.2-1.0); TOTAL PROTEIN 6.3 g/dL (6.4-8.2)
[2017-12-15 07:14] VITALS: BP 170/77
[2017-12-15] MEDS: hydrALAzine 20 MG/ML, 1ML IVPush PRN ×2 (08:55→23:31)
[2017-12-15] MEDS ORDERED: METO200T47 PO (10:15)
[2017-12-15] MEDS ORDERED: AMLO10TA6 PO (10:15)
[2017-12-15] MEDS ORDERED: NEBI5TAB3 PO (10:15)
[2017-12-15] MEDS ORDERED: SERT25TA3 PO (10:15)
[2017-12-15 10:34] VITALS: BP 151/79
[2017-12-15] MEDS: METOPROLOL TARTRATE 25 MG TABLET PO SCH ×2 (11:51→21:13)
[2017-12-15] MEDS: NEBIVOLOL HCL 5 MG TABLET PO SCH (11:51)
[2017-12-15] MEDS: SERTRALINE 50MG TABLET PO SCH (11:52)
[2017-12-15 12:24] VITALS: BP 143/78
[2017-12-15 19:07] VITALS: BP 180/86
[2017-12-15] MEDS ORDERED: METOPROLOL TARTRATE 25 MG TABLET PO SCH (21:00)
[2017-12-15] MEDS ORDERED: LORazepam 2 MG/ML, 1ML ONE (22:39)
[2017-12-15] MEDS: LORazepam 2 MG/ML, 1ML IVPush PRN ×2 (22:43→23:31)
[2017-12-16 00:48] VITALS: BP 174/76
[2017-12-16 03:30] VITALS: BP 183/77
[2017-12-16] MEDS ORDERED: LABETALOL 5MG/ML, 20ML IVPush ONE (03:30)
[2017-12-16 04:20] VITALS: BP 95/57
[2017-12-16 07:09] VITALS: BP 149/71
[2017-12-16] MEDS: METOPROLOL TARTRATE 25 MG TABLET PO SCH ×2 (08:25→21:35)
[2017-12-16] MEDS: NEBIVOLOL HCL 5 MG TABLET PO SCH (08:26)
[2017-12-16] MEDS: SERTRALINE 50MG TABLET PO SCH (08:27)
[2017-12-16] MEDS ORDERED: NEBIVOLOL HCL 5 MG TABLET PO SCH (09:00)
[2017-12-16] MEDS ORDERED: SERTRALINE 50MG TABLET PO SCH (09:00)
[2017-12-16] MEDS ORDERED: HALOPERIDOL 5 MG/ML IM PRN (12:00)
[2017-12-16 12:48] VITALS: BP 142/74
[2017-12-16 19:20] VITALS: BP 157/57
[2017-12-17 01:17] VITALS: BP 163/64
[2017-12-17 07:14] VITALS: BP 173/73
[2017-12-17] MEDS: NEBIVOLOL HCL 5 MG TABLET PO SCH (09:26)
[2017-12-17] MEDS: METOPROLOL TARTRATE 25 MG TABLET PO SCH (09:26)
[2017-12-17] MEDS: SERTRALINE 50MG TABLET PO SCH (09:26)
[2017-12-17 13:57] VITALS: BP 169/78
[2017-12-17] MEDS: AMLODIPINE 5 MG TABLET PO SCH (14:01)
[2017-12-17 15:22] LABS: ANION GAP 10 mmol/L (5-15); CALCIUM 8.3 mg/dL (8.5-10.1); CHLORIDE 105 mmol/L (98-107)
[2017-12-17 19:11] VITALS: BP 137/63
[2017-12-17] MEDS ORDERED: METOPROLOL TARTRATE 25 MG TABLET PO SCH (21:00)
[2017-12-18 00:48] VITALS: BP 144/67
[2017-12-18 07:32] VITALS: BP 160/75
[2017-12-18] MEDS: AMLODIPINE 5 MG TABLET PO SCH (08:00)
[2017-12-18] MEDS: SERTRALINE 50MG TABLET PO SCH (08:07)
[2017-12-18] MEDS ORDERED: NEBIVOLOL HCL 5 MG TABLET PO SCH (09:00)
[2017-12-18 14:20] VITALS: BP 122/66
[2017-12-18] MEDS: ENOXAPARIN 30 MG/0.3 ML SQ SCH (14:30)
[2017-12-18 20:12] VITALS: BP 151/68
[2017-12-18 20:56] VITALS: BP 110/69
[2017-12-19 00:51] VITALS: BP 138/75
[2017-12-19 08:08] VITALS: BP 146/68
[2017-12-19] MEDS: AMLODIPINE 5 MG TABLET PO SCH (08:26)
[2017-12-19] MEDS: SERTRALINE 50MG TABLET PO SCH (08:26)
[2017-12-19 14:55] VITALS: BP 135/66
[2017-12-19] MEDS: ENOXAPARIN 30 MG/0.3 ML SQ SCH (15:15)
[2017-12-19 19:02] VITALS: BP 151/68
[2017-12-20 01:15] VITALS: BP 156/68
[2017-12-20 07:10] VITALS: BP 129/69
[2017-12-20 09:28] VITALS: BP 152/76
[2017-12-20] MEDS: AMLODIPINE 5 MG TABLET PO SCH (09:34)
[2017-12-20] MEDS: SERTRALINE 50MG TABLET PO SCH (09:36)
[2017-12-20 12:01] VITALS: BP 128/65
== END 2017-12-20 16:19 | disposition home or self-care (01) | DRG 73 ==
LOC: ED 12:21 → EDIP 13:12 → 4EST 14:37
PROVIDERS: ADMIT Internal Medicine; ATTEND Internal Medicine
PROC: 0T9B70Z Drainage of Bladder with Drainage Device, Via Natural or Artificial Opening (ICD-10-PCS; principal; 2017-12-14)
DX: G90.8 Other disorders of autonomic nervous system (principal); N17.0 Acute kidney failure with tubular necrosis; D69.3 Immune thrombocytopenic purpura; F03.90 Unspecified dementia, unspecified severity, without behavioral disturbance, psychotic disturbance, mood disturbance, and anxiety; I11.9 Hypertensive heart disease without heart failure; I44.0 Atrioventricular block, first degree; I48.0 Paroxysmal atrial fibrillation; J44.9 Chronic obstructive pulmonary disease, unspecified; Z79.4 Long term (current) use of insulin; Z85.118 Personal history of other malignant neoplasm of bronchus and lung; Z90.710 Acquired absence of both cervix and uterus; Z88.0 Allergy status to penicillin; Z88.2 Allergy status to sulfonamides; Z88.8 Allergy status to other drugs, medicaments and biological substances; Z91.81 History of falling; Z53.20 Procedure and treatment not carried out because of patient's decision for unspecified reasons; Z79.82 Long term (current) use of aspirin; Z79.899 Other long term (current) drug therapy
CPT/HCPCS: 36415; 70450; 71045; 80048; 80053; 81001; 83615; 83735; 83880; 84443; 84484; 85025; 85045; 85379; 85384; 85610; 85730; 93005; 96361; 96374; 99285; G0378; J1650; J3480; J0360; J2060; J7040; J7512

== ENCOUNTER 2018-04-05 10:51 | Emergency (ER) | payer MEDICARE ==
[~2018-04-05] VITALS: Ht 160 cm; Wt 53.0 kg
[~2018-04-05 10:51] MED LIST changes: +AMLO-150 PO; -AMLO10TA6 PO; +AMLO10TA8 PO; -AMLO5TAB7 PO; -ASPI-621 PO; +ASPI81TA45 PO; -CLON0.1T PO; +CLON0.1T22 PO; +DOXY100C2 PO; +HYDR-3341 PO; +ISOS10TA2 PO; +LACT1TAB6 PO; +METO200T47 PO; +ONDA4TAB13 PO; +SERT25TA3 PO; +VALS1TAB3 PO
[2018-04-05] MEDS ORDERED: ACETAMINOPHEN 500 MG TABLET ONE (11:20)
--- NOTE | 2018-04-05 11:25 | NUR ---
AFTER MEDICATED FOR PAIN PT TO XRAY
[2018-04-05] MEDS ORDERED: ACETAMINOPHEN 500 MG TABLET PO ONE (11:30)
[2018-04-05] MEDS ORDERED: HYDROcodone/APAP 5/325 TABLET PO ONE (13:00)
--- NOTE | 2018-04-05 13:15 | NUR ---
FAMILY AT BEDSIDE
--- NOTE | 2018-04-05 13:30 | NUR ---
AMBULATED WITH DAUGHTER, NO ASSITANCE NEEDD, TO BATHROOM
--- NOTE | 2018-04-05 14:00 | NUR ---
FAMILY AT [facility] STATES SHE IS DAUGHTER IN LAW. FUTHER STATES THAT PT LIVES WITH GRANDDAUGHTER AND THAT GRANDDAUGHTER IS IN PROCESS OF SEEKING AVENUES TO OBTAIN ASSISTANCE OR POSSIBLE PLACEMENT OF PT IN SOME TYPE OF PRISON. [id number] STATES GRANDDAUGHTER IS OVERWHELMED. DAUGHTER IN LAW MADE AWARE RN WILL BE REACHING OUT TO [facility] AND EXPLAINED TO HER THAT THEY WILL CONTACT GRANDDAUGHTER. FURTHER EXPLAINED RESOURCES MAY BE MADE AVAILABLE MORE QUICKLY BY [facility]. DAUGHER IN LAW STATES SHE IS TAKING PATIENT HOME AND THAT GRANDDAUGHTER WILL BE THERE ON ARRIVAL
--- NOTE | 2018-04-05 14:03 | NUR ---
Spoke with pt's ex daughter in law Dalila. Pt was left alone in house today by grandelaine who is pt's primary caregiver. Per Dalila pt is not left alone in the house and one of pt's grandaughters is always present. This RN discussed with Dalila that EPS report will be filed so that pt safety can be assured. Pt fully dressed, expressing desire to go home.
--- NOTE | 2018-04-05 14:14 | NUR ---
crisis hotline contacted and message left regarding concerns RN has with pt's safety. bill benton's contact number left on voice mail
[2018-04-05 14:16] VITALS: BP 186/96
== END 2018-04-05 14:20 | disposition home or self-care (01) ==
LOC: ED 12:11
DX: S32.2XXA Fracture of coccyx, initial encounter for closed fracture (principal); J44.9 Chronic obstructive pulmonary disease, unspecified; I10 Essential (primary) hypertension; Z72.9 Problem related to lifestyle, unspecified; Z90.49 Acquired absence of other specified parts of digestive tract; Z90.710 Acquired absence of both cervix and uterus; W19.XXXA Unspecified fall, initial encounter; Y93.89 Activity, other specified; Y92.009 Unspecified place in unspecified non-institutional (private) residence as the place of occurrence of the external cause; Y99.8 Other external cause status
CPT/HCPCS: 72190; 72220; 99283

== ENCOUNTER 2018-04-12 09:52 | Emergency (ER) | payer MEDICARE ==
[~2018-04-12] VITALS: Ht 160 cm; Wt 46.1 kg
[2018-04-12] MEDS ORDERED: AMLO-150 PO (10:22)
[2018-04-12 10:56] LABS: BASOPHILS # (AUTO) 0.01 x10^3/uL (0-0.1); BASOPHILS % (AUTO) 0 % (0-1); EOSINOPHILS # (AUTO) 0.02 x10^3/uL (0-0.4); EOSINOPHILS % (AUTO) 0 % (1-7); LYMPHOCYTES # (AUTO) 0.89 x10^3/uL (1-3.4); LYMPHOCYTES % (AUTO) 13 % (22-44); MD NO; MEAN CORPUSCULAR HEMOGLOBIN 31.1 pg (27.0-34.8); MEAN CORPUSCULAR HGB CONC 33.7 g/dL (32.4-35.8); MEAN CORPUSCULAR VOLUME 92.5 fL (80-100); MEAN PLATELET VOLUME 7.8 fL (7.4-10.4); MONOCYTES # (AUTO) 1.33 x10^3/uL (0.2-0.8); MONOCYTES % (AUTO) 20 % (2-9); NEUTROPHILS # (AUTO) 4.51 x10^3/uL (1.8-6.8); NEUTROPHILS % (AUTO) 67 % (42-75); PLATELET COUNT 235 x10^3/uL (130-400); RED BLOOD COUNT 4.48 x10^6/uL (3.82-5.3); RED CELL DISTRIBUTION WIDTH 14.1 % (9.6-15.2)
--- NOTE | 2018-04-12 11:04 | NUR ---
pt upright on gurney awake & calm, responds approp o tstaff, NAD, comfort measures provided, granddaughter at BS, call light within reach.
[2018-04-12 11:06] LABS: ALANINE AMINOTRANSFERASE 33 U/L (12-78); ALBUMIN 3.5 g/dL (3.4-5.0); ANION GAP 7 mmol/L (5-15); CALCIUM 9.3 mg/dL (8.5-10.1); CHLORIDE 99 mmol/L (98-107); CREATININE 0.88 mg/dL (0.55-1.02)
[2018-04-12 11:10] LABS: ALKALINE PHOSPHATASE 110 U/L (45-117); BILIRUBIN,TOTAL 0.4 mg/dL (0.2-1.0); TOTAL PROTEIN 7.5 g/dL (6.4-8.2); TROPONIN I < 0.015 ng/mL (0.000-0.045)
[2018-04-12 11:30] LABS: MICROSCOPIC AUTO
[2018-04-12 11:31] LABS: CULTURE INDICATED? NO
[2018-04-12 12:01] VITALS: BP 132/72
--- NOTE | 2018-04-12 12:02 | NUR ---
pt ambulated foley steadily & indep, back to [facility] awake & calm, responds approp to staff, NAD, comfort measures provided, granddaughter at BS, call light within reach.
--- NOTE | 2018-04-12 12:42 | NUR ---
First contact with patient. Patient/Caregiver given discharge instructions and they have confirmed that they understand the instructions. Patient ambulatory with steady gait to wheelchair. pt taken to discharge by daughter. pt left with all personal belongings.
== END 2018-04-12 12:45 | disposition home or self-care (01) ==
LOC: ED 10:21
DX: F03.90 Unspecified dementia, unspecified severity, without behavioral disturbance, psychotic disturbance, mood disturbance, and anxiety (principal); J44.9 Chronic obstructive pulmonary disease, unspecified; Z88.8 Allergy status to other drugs, medicaments and biological substances; Z88.0 Allergy status to penicillin; Z88.2 Allergy status to sulfonamides; Z90.49 Acquired absence of other specified parts of digestive tract; Z90.710 Acquired absence of both cervix and uterus
CPT/HCPCS: 36415; 71045; 80053; 81001; 84484; 85025; 93005; 99284

== ENCOUNTER 2018-07-18 17:46 | Inpatient (IN) | payer MEDICARE ==
[~2018-07-18] VITALS: Ht 160 cm; Wt 50.4 kg
[2018-07-18 18:14] LABS: BASOPHILS # (AUTO) 0.03 x10^3/uL (0-0.1); BASOPHILS % (AUTO) 1 % (0-1); EOSINOPHILS # (AUTO) 0.02 x10^3/uL (0-0.4); EOSINOPHILS % (AUTO) 0 % (1-7); LYMPHOCYTES # (AUTO) 0.82 x10^3/uL (1-3.4); LYMPHOCYTES % (AUTO) 12 % (22-44); MD NO; MEAN CORPUSCULAR HEMOGLOBIN 31.4 pg (27.0-34.8); MEAN CORPUSCULAR HGB CONC 34.1 g/dL (32.4-35.8); MEAN CORPUSCULAR VOLUME 92.1 fL (80-100); MEAN PLATELET VOLUME 8.2 fL (7.4-10.4); MONOCYTES # (AUTO) 0.61 x10^3/uL (0.2-0.8); MONOCYTES % (AUTO) 9 % (2-9); NEUTROPHILS # (AUTO) 5.16 x10^3/uL (1.8-6.8); NEUTROPHILS % (AUTO) 78 % (42-75); PLATELET COUNT 162 x10^3/uL (130-400); RED BLOOD COUNT 4.48 x10^6/uL (3.82-5.3); RED CELL DISTRIBUTION WIDTH 13.5 % (9.6-15.2)
[2018-07-18 18:22] LABS: INTERNATIONAL NORMALIZED RATIO 1.06 (0.93-1.1); PROTHROMBIN TIME 11.1 Seconds (9.6-11.5)
[2018-07-18 18:23] LABS: ALANINE AMINOTRANSFERASE 31 U/L (12-78); ALBUMIN 3.7 g/dL (3.4-5.0); ANION GAP 9 mmol/L (5-15); CALCIUM 8.7 mg/dL (8.5-10.1); CHLORIDE 105 mmol/L (98-107); CREATININE 1.51 mg/dL (0.55-1.02)
[2018-07-18 18:28] LABS: ALKALINE PHOSPHATASE 116 U/L (45-117); BILIRUBIN,TOTAL 0.4 mg/dL (0.2-1.0); TOTAL PROTEIN 7.2 g/dL (6.4-8.2)
[2018-07-18] MEDS: ENALAPRILAT 1.25 MG/ML, 2ML IV ONE ×2 (19:00→19:28)
--- NOTE | 2018-07-18 19:39 | NUR ---
VASOTEC HELD PER ADMIN MD ORDER DUE TO ARF
[2018-07-18 19:47] VITALS: BP 165/95
[2018-07-18] MEDS ORDERED: BISACODYL 10 MG SUPP PR PRN (20:00)
[2018-07-18] MEDS ORDERED: hydrALAzine 20 MG/ML, 1ML IV PRN (20:00)
[2018-07-18] MEDS ORDERED: POLYETHYLENE GLYCOL 17 GM PACKET PO PRN (20:00)
[2018-07-18] MEDS ORDERED: ACETAMINOPHEN 325 MG TABLET PO PRN (20:00)
[2018-07-18] MEDS ORDERED: ONDANSETRON ODT 4 MG PO PRN (20:00)
[2018-07-18 20:46] LABS: HEMOGLOBIN A1C 5.8 % (4.2-6.3)
[2018-07-18] MEDS: NS + 20MEQ KCL 1,000 ML IV SCH (21:57)
[2018-07-19] VITALS (13 sets, daily range): BP systolic 108–189; BP diastolic 68–99
[2018-07-19 06:24] LABS: BASOPHILS # (AUTO) 0.02 x10^3/uL (0-0.1); BASOPHILS % (AUTO) 0 % (0-1); EOSINOPHILS # (AUTO) 0.08 x10^3/uL (0-0.4); EOSINOPHILS % (AUTO) 1 % (1-7); LYMPHOCYTES # (AUTO) 1.57 x10^3/uL (1-3.4); LYMPHOCYTES % (AUTO) 30 % (22-44); MD NO; MEAN CORPUSCULAR HEMOGLOBIN 30.3 pg (27.0-34.8); MEAN CORPUSCULAR HGB CONC 33.4 g/dL (32.4-35.8); MEAN CORPUSCULAR VOLUME 90.6 fL (80-100); MEAN PLATELET VOLUME 8.2 fL (7.4-10.4); MONOCYTES # (AUTO) 0.72 x10^3/uL (0.2-0.8); MONOCYTES % (AUTO) 14 % (2-9); NEUTROPHILS # (AUTO) 2.93 x10^3/uL (1.8-6.8); NEUTROPHILS % (AUTO) 55 % (42-75); PLATELET COUNT 157 x10^3/uL (130-400); RED BLOOD COUNT 4.43 x10^6/uL (3.82-5.3); RED CELL DISTRIBUTION WIDTH 13.7 % (9.6-15.2)
[2018-07-19 06:36] LABS: ALANINE AMINOTRANSFERASE 25 U/L (12-78); ALBUMIN 3.2 g/dL (3.4-5.0); ANION GAP 7 mmol/L (5-15); CALCIUM 8.6 mg/dL (8.5-10.1); CHLORIDE 112 mmol/L (98-107); CREATININE 0.82 mg/dL (0.55-1.02)
[2018-07-19 06:41] LABS: ALKALINE PHOSPHATASE 102 U/L (45-117); BILIRUBIN,TOTAL 0.6 mg/dL (0.2-1.0); TOTAL PROTEIN 6.5 g/dL (6.4-8.2); TROPONIN I < 0.015 ng/mL (0.000-0.045)
[2018-07-19] MEDS: AMLODIPINE 5 MG TABLET PO SCH (08:48)
[2018-07-19] MEDS: ASPIRIN 81 MG TABLET EC PO SCH (08:48)
[2018-07-19] MEDS: SENNA/DOCUSATE TABLET PO SCH (08:49)
[2018-07-19] MEDS: NS + 20MEQ KCL 1,000 ML IV SCH ×2 (08:50→20:04)
[2018-07-19 11:45] LABS: TROPONIN I < 0.015 ng/mL (0.000-0.045)
[2018-07-19 11:48] LABS: CHOL/HDL RATIO 3.2; LDL/HDL RATIO 1.9 (0.5-3.0)
[2018-07-20] VITALS (8 sets, daily range): BP systolic 113–185; BP diastolic 67–103
[2018-07-20] MEDS ORDERED: ZIPRASIDONE 20 MG INJ IM ONE ×2 (01:00→01:03)
[2018-07-20 05:57] LABS: ANION GAP 9 mmol/L (5-15); CALCIUM 9.2 mg/dL (8.5-10.1); CHLORIDE 110 mmol/L (98-107)
[2018-07-20 06:00] LABS: CREATININE 0.76 mg/dL (0.55-1.02)
[2018-07-20] MEDS: AMLODIPINE 5 MG TABLET PO SCH (09:16)
[2018-07-20] MEDS: ASPIRIN 81 MG TABLET EC PO SCH (09:16)
[2018-07-20] MEDS: SENNA/DOCUSATE TABLET PO SCH (09:16)
== END 2018-07-20 17:40 | disposition home or self-care (01) | DRG 73 ==
LOC: ED 17:55 → EDIP 18:54 → 4EST 19:45
PROVIDERS: ADMIT Internal Medicine; ATTEND Internal Medicine
DX: G90.8 Other disorders of autonomic nervous system (principal); N17.0 Acute kidney failure with tubular necrosis; D68.69 Other thrombophilia; E87.6 Hypokalemia; I10 Essential (primary) hypertension; I48.2 Chronic atrial fibrillation; J44.9 Chronic obstructive pulmonary disease, unspecified; Z66 Do not resuscitate; F03.90 Unspecified dementia, unspecified severity, without behavioral disturbance, psychotic disturbance, mood disturbance, and anxiety; E86.0 Dehydration; R29.6 Repeated falls; Z85.118 Personal history of other malignant neoplasm of bronchus and lung; Z90.710 Acquired absence of both cervix and uterus; Z90.49 Acquired absence of other specified parts of digestive tract; Z88.0 Allergy status to penicillin; Z88.2 Allergy status to sulfonamides
CPT/HCPCS: 36415; 71045; 80048; 80053; 80061; 83036; 83880; 84484; 85025; 85610; 85730; 93005; 93306; 93880; 99285; G0378; J3480; J3486; J0360

== ENCOUNTER 2018-08-09 10:20 | Inpatient (IN) | payer MEDICARE ==
[2018-08-09] VITALS (7 sets, daily range): BP systolic 150–178; BP diastolic 73–105
[~2018-08-09] VITALS: Ht 162.6 cm; Wt 46.8 kg
[2018-08-09] MEDS ORDERED: SODIUM CHLORIDE 0.9% 1,000 ML IV ONE (10:33)
[2018-08-09] MEDS ORDERED: SODIUM CHLORIDE FLUSH 10ML SYR IVF ONE (11:00)
[2018-08-09 11:18] LABS: BASOPHILS # (AUTO) 0.02 x10^3/uL (0-0.1); BASOPHILS % (AUTO) 0 % (0-1); EOSINOPHILS % (AUTO) 2 % (1-7); LYMPHOCYTES # (AUTO) 0.89 x10^3/uL (1-3.4); LYMPHOCYTES % (AUTO) 17 % (22-44); MD NO; MEAN CORPUSCULAR HEMOGLOBIN 31.8 pg (27.0-34.8); MEAN CORPUSCULAR VOLUME 93.7 fL (80-100); MEAN PLATELET VOLUME 8.3 fL (7.4-10.4); MONOCYTES # (AUTO) 0.38 x10^3/uL (0.2-0.8); MONOCYTES % (AUTO) 7 % (2-9); NEUTROPHILS # (AUTO) 3.84 x10^3/uL (1.8-6.8); NEUTROPHILS % (AUTO) 74 % (42-75); PLATELET COUNT 178 x10^3/uL (130-400); RED CELL DISTRIBUTION WIDTH 13.8 % (9.6-15.2)
[2018-08-09 11:21] LABS: INTERNATIONAL NORMALIZED RATIO 1.03 (0.93-1.1); PROTHROMBIN TIME 10.8 Seconds (9.6-11.5)
[2018-08-09 11:23] LABS: ALANINE AMINOTRANSFERASE 30 U/L (12-78); ALBUMIN 4.1 g/dL (3.4-5.0); ANION GAP 9 mmol/L (5-15); CALCIUM 9.3 mg/dL (8.5-10.1); CHLORIDE 104 mmol/L (98-107); CREATININE 1.19 mg/dL (0.55-1.02)
--- NOTE | 2018-08-09 11:28 | NUR ---
FLUIDS INFUSING PER ORDERS. AFTER LABS DRAWN PT TO CT. DAUTHERS AT BEDSIDE. STATES SHE PASSED OUT TODAY. POC DISCUSSED
[2018-08-09 11:30] LABS: ALKALINE PHOSPHATASE 122 U/L (45-117); BILIRUBIN,TOTAL 0.6 mg/dL (0.2-1.0); TOTAL PROTEIN 8.1 g/dL (6.4-8.2); TROPONIN I < 0.015 ng/mL (0.000-0.045)
--- NOTE | 2018-08-09 12:17 | NUR ---
REPORT TO MARIA GUADALUPE CALDWELL. PT TO BE TRANSPORTED
[2018-08-09 13:38] LABS: MICROSCOPIC INDICATED
[2018-08-09 13:39] LABS: CULTURE INDICATED? YES
[2018-08-09] MEDS ORDERED: ONDANSETRON 2MG/ML, 2ML IVPush PRN (15:30)
[2018-08-09] MEDS ORDERED: ACETAMINOPHEN 325 MG TABLET PO PRN (15:30)
[2018-08-09] MEDS ORDERED: LABETALOL 5MG/ML, 20ML IVPush PRN (15:30)
[2018-08-09] MEDS: HEPARIN 5,000 UNITS/ML, 1ML SQ SCH (15:51)
[2018-08-09] MEDS: SODIUM CHLORIDE 0.9% 1,000 ML IV SCH (15:52)
[2018-08-09 16:16] LABS: BASOPHILS # (AUTO) 0.01 x10^3/uL (0-0.1); BASOPHILS % (AUTO) 0 % (0-1); EOSINOPHILS # (AUTO) 0.06 x10^3/uL (0-0.4); EOSINOPHILS % (AUTO) 1 % (1-7); LYMPHOCYTES # (AUTO) 1.38 x10^3/uL (1-3.4); LYMPHOCYTES % (AUTO) 25 % (22-44); MD NO; MEAN CORPUSCULAR HEMOGLOBIN 31.1 pg (27.0-34.8); MEAN CORPUSCULAR HGB CONC 33.1 g/dL (32.4-35.8); MEAN PLATELET VOLUME 7.7 fL (7.4-10.4); MONOCYTES # (AUTO) 0.73 x10^3/uL (0.2-0.8); MONOCYTES % (AUTO) 13 % (2-9); NEUTROPHILS # (AUTO) 3.29 x10^3/uL (1.8-6.8); NEUTROPHILS % (AUTO) 60 % (42-75); PLATELET COUNT 167 x10^3/uL (130-400); RED BLOOD COUNT 4.33 x10^6/uL (3.82-5.3); RED CELL DISTRIBUTION WIDTH 13.6 % (9.6-15.2)
[2018-08-09 16:26] LABS: CHOL/HDL RATIO 2.9; LDL/HDL RATIO 1.8 (0.5-3.0)
[2018-08-10] MEDS: HEPARIN 5,000 UNITS/ML, 1ML SQ SCH ×3 (00:28→17:17)
[2018-08-10 01:44] VITALS: BP 154/77
[2018-08-10] MEDS: SODIUM CHLORIDE 0.9% 1,000 ML IV SCH (05:25)
[2018-08-10 08:51] LABS: ANION GAP 7 mmol/L (5-15); CALCIUM 8.7 mg/dL (8.5-10.1); CHLORIDE 110 mmol/L (98-107)
[2018-08-10 08:52] VITALS: BP 172/79
[2018-08-10] MEDS ORDERED: METOPROLOL TARTRATE 25 MG TABLET PO SCH (09:00)
[2018-08-10] MEDS: METOPROLOL TARTRATE 25 MG TABLET PO SCH ×2 (09:27→20:24)
[2018-08-10] MEDS ORDERED: POTASSIUM CHLORIDE 20 MEQ TAB.ER.PRT PO ONE (11:00)
[2018-08-10 13:15] VITALS: BP 179/97
[2018-08-10 13:35] VITALS: BP 189/98
[2018-08-10] MEDS: AMLODIPINE 5 MG TABLET PO SCH ×2 (14:30→20:24)
[2018-08-10] MEDS ORDERED: ENALAPRILAT 1.25 MG/ML, 2ML IV PRN (14:30)
[2018-08-10] MEDS ORDERED: HALOPERIDOL 5 MG/ML ONE (16:09)
[2018-08-10] MEDS ORDERED: HALOPERIDOL 5 MG/ML IM ONE (16:30)
[2018-08-10] MEDS ORDERED: LORazepam 2 MG/ML, 1ML ONE (16:43)
[2018-08-10] MEDS ORDERED: LORazepam 2 MG/ML, 1ML IVPush ONE (17:00)
[2018-08-10] MEDS ORDERED: LORazepam 2 MG/ML, 1ML IVPush PRN (17:30)
[2018-08-10 19:43] VITALS: BP 164/76
[2018-08-11] MEDS: HEPARIN 5,000 UNITS/ML, 1ML SQ SCH ×3 (01:13→17:30)
[2018-08-11 01:24] VITALS: BP 160/86
[2018-08-11] MEDS: ASPIRIN 81 MG TABLET CHEW PO SCH ×2 (05:27→05:46)
[2018-08-11] MEDS: METOPROLOL TARTRATE 25 MG TABLET PO SCH ×3 (05:27→18:17)
[2018-08-11 05:43] LABS: CHLORIDE 107 mmol/L (98-107)
[2018-08-11 05:47] LABS: BASOPHILS # (AUTO) 0.01 x10^3/uL (0-0.1); BASOPHILS % (AUTO) 0 % (0-1); EOSINOPHILS # (AUTO) 0.06 x10^3/uL (0-0.4); EOSINOPHILS % (AUTO) 2 % (1-7); LYMPHOCYTES # (AUTO) 1.44 x10^3/uL (1-3.4); LYMPHOCYTES % (AUTO) 33 % (22-44); MD NO; MEAN CORPUSCULAR HEMOGLOBIN 31.3 pg (27.0-34.8); MEAN CORPUSCULAR HGB CONC 33.7 g/dL (32.4-35.8); MEAN PLATELET VOLUME 8.2 fL (7.4-10.4); MONOCYTES # (AUTO) 0.55 x10^3/uL (0.2-0.8); MONOCYTES % (AUTO) 13 % (2-9); NEUTROPHILS # (AUTO) 2.25 x10^3/uL (1.8-6.8); NEUTROPHILS % (AUTO) 52 % (42-75); PLATELET COUNT 141 x10^3/uL (130-400); RED BLOOD COUNT 4.38 x10^6/uL (3.82-5.3); RED CELL DISTRIBUTION WIDTH 13.7 % (9.6-15.2)
[2018-08-11 05:50] LABS: ANION GAP 8 mmol/L (5-15); CREATININE 0.77 mg/dL (0.55-1.02)
[2018-08-11 08:11] VITALS: BP 170/100
[2018-08-11] MEDS: AMLODIPINE 5 MG TABLET PO SCH ×2 (10:30→22:33)
[2018-08-11 12:13] VITALS: BP 152/88
[2018-08-11] MEDS: LOSARTAN 50MG TABLET PO SCH (12:14)
[2018-08-11 18:10] VITALS: BP 120/74
[2018-08-11 18:55] VITALS: BP 153/83
[2018-08-12 00:26] VITALS: BP 142/92
[2018-08-12] MEDS: HEPARIN 5,000 UNITS/ML, 1ML SQ SCH ×3 (02:03→17:03)
[2018-08-12] MEDS ORDERED: ASPIRIN 325 MG TABLET EC PO SCH (06:00)
[2018-08-12 06:18] VITALS: BP 129/83
[2018-08-12] MEDS: METOPROLOL TARTRATE 25 MG TABLET PO SCH ×2 (06:23→17:17)
[2018-08-12 08:13] VITALS: BP 170/100
[2018-08-12] MEDS: AMLODIPINE 5 MG TABLET PO SCH (08:30)
[2018-08-12] MEDS: LOSARTAN 50MG TABLET PO SCH (08:31)
[2018-08-12] MEDS ORDERED: METO25TA35 PO (13:51)
[2018-08-12] MEDS ORDERED: ASPI-650 PO (13:51)
[2018-08-12] MEDS ORDERED: LOSA50TA2 PO (13:51)
[2018-08-12] MEDS ORDERED: AMLO-150 PO (13:51)
[2018-08-12 15:00] VITALS: BP 148/72
[2018-08-12 17:17] VITALS: BP 152/80
== END 2018-08-12 18:52 | disposition home or self-care (01) | DRG 73 ==
LOC: ED 11:31 → OBSVTOIN 11:32 → EDIP 11:32 → INTOOBSV 11:32 → ED 11:38 → 5SO 12:35
PROVIDERS: ADMIT Internal Medicine; ATTEND Internal Medicine
DX: G90.8 Other disorders of autonomic nervous system (principal); N17.0 Acute kidney failure with tubular necrosis; E87.2 Acidosis; I48.92 Unspecified atrial flutter; D68.69 Other thrombophilia; I50.32 Chronic diastolic (congestive) heart failure; Z66 Do not resuscitate; F03.90 Unspecified dementia, unspecified severity, without behavioral disturbance, psychotic disturbance, mood disturbance, and anxiety; I08.1 Rheumatic disorders of both mitral and tricuspid valves; I11.0 Hypertensive heart disease with heart failure; I48.2 Chronic atrial fibrillation; J44.9 Chronic obstructive pulmonary disease, unspecified; Z79.82 Long term (current) use of aspirin; Z85.118 Personal history of other malignant neoplasm of bronchus and lung; Z86.73 Personal history of transient ischemic attack (TIA), and cerebral infarction without residual deficits; Z90.710 Acquired absence of both cervix and uterus; Z91.14 Patient's other noncompliance with medication regimen; Z91.81 History of falling; Z98.82 Breast implant status; Z88.8 Allergy status to other drugs, medicaments and biological substances; Z88.0 Allergy status to penicillin; Z88.2 Allergy status to sulfonamides
CPT/HCPCS: 36415; 70450; 71045; 80048; 80053; 80061; 81001; 82533; 82607; 83605; 83735; 83880; 84100; 84439; 84443; 84484; 85025; 85610; 87040; 87086; 93005; G0378; J1644; J1630; J2060; J7030

== ENCOUNTER 2018-12-22 16:07 | Inpatient (IN) | payer MEDICARE ==
[~2018-12-22] VITALS: Ht 157.5 cm; Wt 53.2 kg
[~2018-12-22 16:07] MED LIST changes: +ASPI-650 PO; +LOSA50TA2 PO
--- NOTE | 2018-12-22 16:44 | NUR ---
ELECTRICIAN STATION ASSISTANT: PT TO ROOM FROM LOBBY, VIA WHEELCHAIR
--- NOTE | 2018-12-22 16:52 | NUR ---
THIS IS AN 89 YO FEMALE BROUGHT IN BY FAMILY. STARTING THURSDAY NIGHT THE PATIENT WAS HAVING EPISODES OF SHAKING WITH SHORTNESS OF BREATH AND TACYPNIC. PATIENT COMPLAINED OF INTERMITTANT ABDOMINAL PAIN AND LOWER BACK PAIN. PATIENT WAS SENT HOME FROM [facility]ULT [facility] THURSDAY FOR SHORTNESS OF BREATH AND SHAKING. FAMILY BROUGHT HER HOME, PATIENT WENT BACK TO NORM. SYMPTOMS ARE INTERMITTANT, STARTED AGAIN TODAY, AND FAMILY BROUGHT PATIENT IN. THIS PATIENT HAS A HX OF DEMENTIA, AFIB, HTN, AND BREAST CANCER. PATIENT IS PLACED ON WASTE OIL PUMPER, FIB PRESENT WITH RVR. PATIENT ON CONTINUOUS SPO2, CYCLE BP. PATIENT DENIES ANY NEEDS AT THIS TIME.
[2018-12-22 17:30] LABS: MICROSCOPIC AUTO
[2018-12-22] MEDS ORDERED: SODIUM CHLORIDE FLUSH 10ML SYR IVF ONE (17:30)
[2018-12-22 17:31] LABS: BASOPHILS # (AUTO) 0.02 x10^3/uL (0-0.1); BASOPHILS % (AUTO) 0 % (0-1); EOSINOPHILS % (AUTO) 1 % (1-7); LYMPHOCYTES # (AUTO) 1.48 x10^3/uL (1-3.4); LYMPHOCYTES % (AUTO) 17 % (22-44); MD NO; MEAN CORPUSCULAR HGB CONC 34.2 g/dL (32.4-35.8); MEAN CORPUSCULAR VOLUME 93.4 fL (80-100); MEAN PLATELET VOLUME 7.8 fL (7.4-10.4); MONOCYTES # (AUTO) 1.06 x10^3/uL (0.2-0.8); MONOCYTES % (AUTO) 12 % (2-9); NEUTROPHILS # (AUTO) 6.33 x10^3/uL (1.8-6.8); NEUTROPHILS % (AUTO) 70 % (42-75); PLATELET COUNT 206 x10^3/uL (130-400); RED BLOOD COUNT 4.22 x10^6/uL (3.82-5.3); RED CELL DISTRIBUTION WIDTH 12.8 % (9.6-15.2)
[2018-12-22 17:31] LABS: CULTURE INDICATED? YES
[2018-12-22 17:41] LABS: ALANINE AMINOTRANSFERASE 29 U/L (12-78); ALBUMIN 3.6 g/dL (3.4-5.0); ANION GAP 8 mmol/L (5-15); CALCIUM 8.9 mg/dL (8.5-10.1); CHLORIDE 97 mmol/L (98-107); CREATININE 0.96 mg/dL (0.55-1.02)
[2018-12-22 17:45] LABS: ALKALINE PHOSPHATASE 118 U/L (45-117); BILIRUBIN,TOTAL 0.8 mg/dL (0.2-1.0); TOTAL PROTEIN 8.3 g/dL (6.4-8.2); TROPONIN I < 0.015 ng/mL (0.000-0.045)
[2018-12-22] MEDS ORDERED: CEFTRIAXONE PMX 1GM/50ML 50 ML IVPB ONE (18:00)
--- NOTE | 2018-12-22 18:10 | NUR ---
PATIENT RESTING ON GURNEY, GRANDCHILDREN AT BEDSIDE. PATIENT DENIES ANY NEEDS AT THIS TIME.
--- NOTE | 2018-12-22 18:10 | NUR ---
REPORT GIVEN TO JAVI BEAN. PLAN OF CARE DISCUSSED.
[2018-12-22 18:45] VITALS: BP 153/95
[2018-12-22] MEDS: SODIUM CHLORIDE 0.9% 1,000 ML IV SCH (19:47)
[2018-12-22] MEDS ORDERED: hydrALAzine 20 MG/ML, 1ML IVPush PRN (20:00)
[2018-12-22] MEDS ORDERED: DOCUSATE 100 MG CAPSULE PO PRN (20:00)
[2018-12-22] MEDS ORDERED: HALOPERIDOL 2 MG TABLET PO PRN (20:00)
[2018-12-22] MEDS ORDERED: MELATONIN 3 MG TABLET PO PRN (20:00)
[2018-12-22] MEDS: AMLODIPINE 5 MG TABLET HOMEMEDPO SCH (20:21)
[2018-12-22] MEDS: CEFTRIAXONE PMX 1GM/50ML 50 ML IV SCH (21:00)
[2018-12-22] MEDS: ENOXAPARIN 40 MG/0.4 ML SQ SCH (22:30)
[2018-12-23 00:13] VITALS: BP 127/69
[2018-12-23 06:00] LABS: BASOPHILS # (AUTO) 0.02 x10^3/uL (0-0.1); BASOPHILS % (AUTO) 0 % (0-1); EOSINOPHILS % (AUTO) 2 % (1-7); LYMPHOCYTES # (AUTO) 1.04 x10^3/uL (1-3.4); LYMPHOCYTES % (AUTO) 17 % (22-44); MD NO; MEAN CORPUSCULAR HEMOGLOBIN 32.2 pg (27.0-34.8); MEAN CORPUSCULAR HGB CONC 34.6 g/dL (32.4-35.8); MEAN CORPUSCULAR VOLUME 93.1 fL (80-100); MEAN PLATELET VOLUME 8.3 fL (7.4-10.4); MONOCYTES % (AUTO) 16 % (2-9); NEUTROPHILS # (AUTO) 4.16 x10^3/uL (1.8-6.8); NEUTROPHILS % (AUTO) 66 % (42-75); PLATELET COUNT 172 x10^3/uL (130-400); RED BLOOD COUNT 3.77 x10^6/uL (3.82-5.3); RED CELL DISTRIBUTION WIDTH 12.7 % (9.6-15.2)
[2018-12-23 06:05] LABS: ANION GAP 8 mmol/L (5-15); CALCIUM 8.2 mg/dL (8.5-10.1); CHLORIDE 107 mmol/L (98-107); CREATININE 0.77 mg/dL (0.55-1.02)
[2018-12-23 07:25] VITALS: BP 118/78
[2018-12-23] MEDS: AMLODIPINE 5 MG TABLET HOMEMEDPO SCH ×2 (09:27→20:42)
[2018-12-23] MEDS ORDERED: AZITHROMYCIN 500 MG in SODIUM CHLORIDE 0.9% 250 ML IV SCH (09:30)
[2018-12-23] MEDS: CEFTRIAXONE PMX 1GM/50ML 50 ML IV SCH ×2 (09:44→22:44)
[2018-12-23] MEDS: SODIUM CHLORIDE 0.9% 1,000 ML IV SCH (11:30)
[2018-12-23 13:25] VITALS: BP 103/66
[2018-12-23 19:13] VITALS: BP 104/65
[2018-12-23] MEDS: ENOXAPARIN 40 MG/0.4 ML SQ SCH (20:42)
[2018-12-23] MEDS: QUETIAPINE 25MG TABLET PO SCH (20:43)
[2018-12-24 00:51] VITALS: BP 106/68
[2018-12-24] MEDS: SODIUM CHLORIDE 0.9% 1,000 ML IV SCH ×3 (04:08→23:30)
[2018-12-24 06:56] LABS: BASOPHILS # (AUTO) 0.01 x10^3/uL (0-0.1); BASOPHILS % (AUTO) 0 % (0-1); EOSINOPHILS # (AUTO) 0.08 x10^3/uL (0-0.4); EOSINOPHILS % (AUTO) 2 % (1-7); LYMPHOCYTES # (AUTO) 1.07 x10^3/uL (1-3.4); LYMPHOCYTES % (AUTO) 23 % (22-44); MD NO; MEAN CORPUSCULAR HEMOGLOBIN 30.9 pg (27.0-34.8); MEAN CORPUSCULAR HGB CONC 33.1 g/dL (32.4-35.8); MEAN CORPUSCULAR VOLUME 93.2 fL (80-100); MEAN PLATELET VOLUME 8.2 fL (7.4-10.4); MONOCYTES # (AUTO) 0.78 x10^3/uL (0.2-0.8); MONOCYTES % (AUTO) 17 % (2-9); NEUTROPHILS # (AUTO) 2.63 x10^3/uL (1.8-6.8); NEUTROPHILS % (AUTO) 58 % (42-75); PLATELET COUNT 185 x10^3/uL (130-400); RED BLOOD COUNT 3.66 x10^6/uL (3.82-5.3); RED CELL DISTRIBUTION WIDTH 12.6 % (9.6-15.2)
[2018-12-24 06:59] LABS: ALBUMIN 2.9 g/dL (3.4-5.0); CALCIUM 8.2 mg/dL (8.5-10.1); CHLORIDE 111 mmol/L (98-107)
[2018-12-24 07:00] VITALS: BP 124/74
[2018-12-24 07:02] LABS: ANION GAP 6 mmol/L (5-15); CREATININE 0.68 mg/dL (0.55-1.02)
[2018-12-24] MEDS: DOXYCYCLINE 100MG TABLET PO SCH ×2 (09:10→21:29)
[2018-12-24] MEDS: CEFDINIR 300 MG CAPSULE PO SCH ×2 (09:10→21:29)
[2018-12-24] MEDS: METOPROLOL TARTRATE 50 MG TABLET PO SCH ×2 (09:11→17:02)
[2018-12-24] MEDS ORDERED: POTASSIUM CHLORIDE 10 MEQ TABLET.ER ONE (11:47)
[2018-12-24] MEDS: POTASSIUM CHLORIDE 10 MEQ TABLET.ER PO SCH ×2 (13:01→17:01)
[2018-12-24 13:02] VITALS: BP 115/72
[2018-12-24] MEDS: ACETAMINOPHEN 325 MG TABLET PO PRN (15:33)
[2018-12-24] MEDS ORDERED: POTASSIUM CHLORIDE 10 MEQ TABLET.ER PO SCH (17:00)
[2018-12-24 20:04] VITALS: BP 113/69
[2018-12-24] MEDS: ENOXAPARIN 40 MG/0.4 ML SQ SCH (21:29)
[2018-12-24] MEDS: QUETIAPINE 25MG TABLET PO SCH (21:29)
[2018-12-25] MEDS: ACETAMINOPHEN 325 MG TABLET PO PRN (00:43)
[2018-12-25 06:00] VITALS: BP 112/60
[2018-12-25] MEDS: METOPROLOL TARTRATE 50 MG TABLET PO SCH (06:01)
[2018-12-25 06:43] LABS: BASOPHILS # (AUTO) 0.01 x10^3/uL (0-0.1); BASOPHILS % (AUTO) 0 % (0-1); EOSINOPHILS # (AUTO) 0.09 x10^3/uL (0-0.4); EOSINOPHILS % (AUTO) 2 % (1-7); LYMPHOCYTES % (AUTO) 32 % (22-44); MD NO; MEAN CORPUSCULAR HEMOGLOBIN 31.6 pg (27.0-34.8); MEAN CORPUSCULAR HGB CONC 33.6 g/dL (32.4-35.8); MEAN PLATELET VOLUME 7.7 fL (7.4-10.4); MONOCYTES # (AUTO) 0.74 x10^3/uL (0.2-0.8); MONOCYTES % (AUTO) 15 % (2-9); NEUTROPHILS # (AUTO) 2.52 x10^3/uL (1.8-6.8); NEUTROPHILS % (AUTO) 51 % (42-75); PLATELET COUNT 186 x10^3/uL (130-400); RED BLOOD COUNT 3.48 x10^6/uL (3.82-5.3)
[2018-12-25 06:56] LABS: ALANINE AMINOTRANSFERASE 37 U/L (12-78); ALBUMIN 2.8 g/dL (3.4-5.0); ANION GAP 4 mmol/L (5-15); CALCIUM 8.2 mg/dL (8.5-10.1); CHLORIDE 115 mmol/L (98-107); CREATININE 0.71 mg/dL (0.55-1.02)
[2018-12-25 06:58] LABS: ALKALINE PHOSPHATASE 130 U/L (45-117); BILIRUBIN,TOTAL 0.5 mg/dL (0.2-1.0); TOTAL PROTEIN 6.3 g/dL (6.4-8.2)
[2018-12-25] MEDS: DOXYCYCLINE 100MG TABLET PO SCH (09:41)
[2018-12-25] MEDS: CEFDINIR 300 MG CAPSULE PO SCH (09:41)
[2018-12-25] MEDS: POTASSIUM CHLORIDE 10 MEQ TABLET.ER PO SCH (09:42)
[2018-12-25] MEDS ORDERED: METO50TA82 PO (13:45)
[2018-12-25] MEDS ORDERED: DOXY100T PO (13:45)
[2018-12-25] MEDS ORDERED: CEFD300C37 PO (13:45)
[2018-12-25 14:00] VITALS: BP 132/75
[2018-12-25 16:23] VITALS: BP 132/75
== END 2018-12-25 18:24 | disposition home or self-care (01) | DRG 178 ==
LOC: ED 17:42 → EDIP 17:43 → ED 18:10 → 4EST 18:37
PROVIDERS: ADMIT Family Medicine; ATTEND Family Medicine
DX: J15.6 Pneumonia due to other Gram-negative bacteria (principal); N39.0 Urinary tract infection, site not specified; J44.0 Chronic obstructive pulmonary disease with (acute) lower respiratory infection; E87.1 Hypo-osmolality and hyponatremia; I47.2 Ventricular tachycardia; F05 Delirium due to known physiological condition; I48.20 Chronic atrial fibrillation, unspecified; J18.9 Pneumonia, unspecified organism; I10 Essential (primary) hypertension; Z85.118 Personal history of other malignant neoplasm of bronchus and lung; Z88.0 Allergy status to penicillin; Z88.2 Allergy status to sulfonamides; E83.51 Hypocalcemia; E87.6 Hypokalemia; F03.90 Unspecified dementia, unspecified severity, without behavioral disturbance, psychotic disturbance, mood disturbance, and anxiety; I07.1 Rheumatic tricuspid insufficiency; I35.8 Other nonrheumatic aortic valve disorders; Z66 Do not resuscitate; Z79.899 Other long term (current) drug therapy; Z90.710 Acquired absence of both cervix and uterus
CPT/HCPCS: 36415; 71045; 80048; 80053; 80069; 81001; 83605; 83735; 83880; 84145; 84484; 85025; 87040; 87086; 93005; 93306; G0378; J0456; J0696; J1650; J7030; J7050

== ENCOUNTER 2019-01-03 09:50 | Emergency (ER) | payer MEDICARE ==
[~2019-01-03] VITALS: Ht 160 cm; Wt 49.0 kg
[~2019-01-03 09:50] MED LIST changes: +DOXY100T PO; +METO50TA82 PO
--- NOTE | 2019-01-03 10:16 | NUR ---
pt to room at this time.
--- NOTE | 2019-01-03 10:30 | NUR ---
88 y/o f PRESENTS TO ED WITH C/O WEAKNESS. PER GRANDDAUGHTER "SHE IS WEAK. SHE TOOK THE BUS TO HER DAY CARE. THEY CALLED EMS. THEY CLEARED HER. THEN SHE WENT TO HER DAY CARE AND THEY CALLED ME AND TOLD ME SHE WAS SICK. SHE WAS HERE THE AND JUST FINISHED HER ABX FOR THE UTI." PT STATES SHE DOESN'T REMEMBER EMS AND SAID "I WAS AT DAY CAMP." PT PLACED ON ALL MONITORS. NO ACUTE DISTRESS NOTED. NO C/O N/V/D, TRAUMA, SYNCOPE.
[2019-01-03 10:52] LABS: BASOPHILS # (AUTO) 0.01 x10^3/uL (0-0.1); BASOPHILS % (AUTO) 0 % (0-1); EOSINOPHILS # (AUTO) 0.11 x10^3/uL (0-0.4); EOSINOPHILS % (AUTO) 2 % (1-7); LYMPHOCYTES # (AUTO) 1.16 x10^3/uL (1-3.4); LYMPHOCYTES % (AUTO) 16 % (22-44); MD NO; MEAN CORPUSCULAR HEMOGLOBIN 31.5 pg (27.0-34.8); MEAN CORPUSCULAR HGB CONC 33.4 g/dL (32.4-35.8); MEAN CORPUSCULAR VOLUME 94.2 fL (80-100); MEAN PLATELET VOLUME 7.4 fL (7.4-10.4); MONOCYTES # (AUTO) 0.81 x10^3/uL (0.2-0.8); MONOCYTES % (AUTO) 11 % (2-9); NEUTROPHILS # (AUTO) 5.03 x10^3/uL (1.8-6.8); NEUTROPHILS % (AUTO) 71 % (42-75); PLATELET COUNT 313 x10^3/uL (130-400); RED BLOOD COUNT 4.48 x10^6/uL (3.82-5.3)
[2019-01-03 11:04] LABS: ALBUMIN 3.4 g/dL (3.4-5.0); ANION GAP 9 mmol/L (5-15); CALCIUM 9.2 mg/dL (8.5-10.1); CHLORIDE 104 mmol/L (98-107)
--- NOTE | 2019-01-03 11:08 | NUR ---
PT AMBULATORY WITH STEADY GAIT TO BATHROOM.
[2019-01-03 11:11] LABS: ALANINE AMINOTRANSFERASE 21 U/L (12-78); ALKALINE PHOSPHATASE 104 U/L (45-117); BILIRUBIN,TOTAL 0.5 mg/dL (0.2-1.0); CREATININE 1.23 mg/dL (0.55-1.02); TOTAL PROTEIN 7.4 g/dL (6.4-8.2); TROPONIN I < 0.015 ng/mL (0.000-0.045)
--- NOTE | 2019-01-03 12:05 | NUR ---
PT RESTING ON GURNEY. NO ACUTE DISTRESS NOTED. VSS. NO NEEDS REQUESTED AT THIS TIME.
[2019-01-03 12:12] VITALS: BP 127/75
--- NOTE | 2019-01-03 12:59 | NUR ---
TASK RN: Received report from primary RN Maribel. All questions answered. Went to obtain UA from pt. Pt dressed in personal clothing sitting in chair at bedside. Pt denies need to urinate and refuses straight cath. EDMD aware. Pt's granddaughter Sharda not at bedside at this time. Pt states, "I just want to go home."
--- NOTE | 2019-01-03 13:11 | NUR ---
Granddaughter contacted through demographic information to pick up truck driver pt. Granddaughter Sharda states, "I am on my way." Pt aware. EDMD aware. Pt sitting in ED room waiting for dc paperwork and her granddaughter at bedside.
--- NOTE | 2019-01-03 13:56 | NUR ---
Patient/Caregiver given discharge instructions and they have confirmed that they understand the instructions. Patient ambulatory with steady gait. PT LEFT WITH ALL PERSONAL BELONGINGS.
== END 2019-01-03 13:58 | disposition home or self-care (01) ==
LOC: ED 13:45
DX: R55 Syncope and collapse (principal); J44.9 Chronic obstructive pulmonary disease, unspecified; I10 Essential (primary) hypertension; Z90.710 Acquired absence of both cervix and uterus; Z90.89 Acquired absence of other organs; Z88.0 Allergy status to penicillin; Z88.2 Allergy status to sulfonamides; Z88.8 Allergy status to other drugs, medicaments and biological substances
CPT/HCPCS: 36415; 71045; 80053; 83880; 84484; 85025; 93005; 99284

== ENCOUNTER 2019-01-16 17:31 | Emergency (ER) | payer MEDICARE ==
[~2019-01-16] VITALS: Ht 160 cm; Wt 65.0 kg
--- NOTE | 2019-01-16 18:30 | NUR ---
PT BIBA FROM HOME. PT LIVES C DAUGHTER/GRANDDAUGHTER (DPOA). HX OF DEMENTIA. BASELINE CHAMP TO ED PER EMS. FAMILY ENROUTE. TRANSPORTED FOR NEAR SYNCOPE. PER EMS PT HAS HAD SEVERAL EPISODES IN LAST MONTH, UNK IF BEEN EVAL RECENTLY. PT DENIES ANY PAIN. VSS, HOWEVER PT TACHYPENIC. LUNGS CTA. PIV ESTB CAR RECORD CLERK. GIVEN WARM BLANKETS. IN NAD. WILL CTM.
--- NOTE | 2019-01-16 18:32 | NUR ---
PHLEB AT BS, LABS DRAWN & SENT. TO XRAY VIA CART. WILL CTM.
[2019-01-16 18:43] LABS: BASOPHILS # (AUTO) 0.02 x10^3/uL (0-0.1); BASOPHILS % (AUTO) 1 % (0-1); EOSINOPHILS # (AUTO) 0.07 x10^3/uL (0-0.4); EOSINOPHILS % (AUTO) 1 % (1-7); LYMPHOCYTES # (AUTO) 1.28 x10^3/uL (1-3.4); LYMPHOCYTES % (AUTO) 26 % (22-44); MD NO; MEAN CORPUSCULAR HEMOGLOBIN 31.4 pg (27.0-34.8); MEAN CORPUSCULAR HGB CONC 34.2 g/dL (32.4-35.8); MEAN CORPUSCULAR VOLUME 91.8 fL (80-100); MEAN PLATELET VOLUME 8.4 fL (7.4-10.4); MONOCYTES # (AUTO) 0.47 x10^3/uL (0.2-0.8); MONOCYTES % (AUTO) 10 % (2-9); NEUTROPHILS # (AUTO) 3.13 x10^3/uL (1.8-6.8); NEUTROPHILS % (AUTO) 63 % (42-75); PLATELET COUNT 160 x10^3/uL (130-400); RED BLOOD COUNT 4.35 x10^6/uL (3.82-5.3); RED CELL DISTRIBUTION WIDTH 13.1 % (9.6-15.2)
[2019-01-16 18:47] LABS: ALBUMIN 3.7 g/dL (3.4-5.0); ANION GAP 11 mmol/L (5-15); CALCIUM 8.9 mg/dL (8.5-10.1); CHLORIDE 105 mmol/L (98-107)
[2019-01-16 18:53] LABS: ALANINE AMINOTRANSFERASE 21 U/L (12-78); ALKALINE PHOSPHATASE 99 U/L (45-117); BILIRUBIN,TOTAL 0.6 mg/dL (0.2-1.0); CREATININE 1.18 mg/dL (0.55-1.02); TOTAL PROTEIN 7.6 g/dL (6.4-8.2); TROPONIN I < 0.015 ng/mL (0.000-0.045)
--- NOTE | 2019-01-16 19:24 | NUR ---
[id number] FROM JAVI ANTHONY
--- NOTE | 2019-01-16 19:39 | NUR ---
PT REFUSES STRAIGHT CATH. PT INSISTANT THAT SHE GOES TO THE BATHROOM FOR URINE SAMPLE ON HER OWN. PT AMBULATORY TO THE BATHROOM WITH STEADY GAIT. GRAND DAUGHTER (BENCH GRINDER) IN TO ASSIST PT WITH CLEAN CATCH URINE SAMPLE.
[2019-01-16 20:09] VITALS: BP 127/73
[2019-01-16 20:19] LABS: MICROSCOPIC INDICATED
[2019-01-16 20:25] LABS: CULTURE INDICATED? YES
[2019-01-16] MEDS ORDERED: NITROFURANTOIN (MACROBID) 100 MG CAPSULE PO ONE (21:30)
[2019-01-16] MEDS ORDERED: NITROFURANTOIN (MACROBID) 100 MG CAPSULE ONE (21:33)
== END 2019-01-16 21:42 | disposition home or self-care (01) ==
LOC: ED 20:59
DX: E87.6 Hypokalemia (principal); Z90.49 Acquired absence of other specified parts of digestive tract; Z90.710 Acquired absence of both cervix and uterus; J44.9 Chronic obstructive pulmonary disease, unspecified; I10 Essential (primary) hypertension
CPT/HCPCS: 36415; 71045; 80053; 81001; 83880; 84484; 85025; 87086; 93005; 99284

== ENCOUNTER 2019-03-08 14:49 | Emergency (ER) | payer MEDICARE ==
[~2019-03-08] VITALS: Ht 172.7 cm; Wt 85.0 kg
[2019-03-08 14:54] VITALS: BP 112/68
--- NOTE | 2019-03-08 15:34 | NUR ---
PT REPEATS QUESTIONS TO WHY SHE IS HERE IT WAS REPORTED THAT FAMILY WAS TO BE FOLLOWING THE AMBULANCE HOWEVER WE HAVE NOT SEEN ANY FAMILY OF YET PT CONTINUES TO DENIE ANY PAIN REQUESTING TO GO HOME
== END 2019-03-08 17:05 | disposition home or self-care (01) ==
LOC: ED 16:39
DX: M54.9 Dorsalgia, unspecified (principal); I10 Essential (primary) hypertension; J44.0 Chronic obstructive pulmonary disease with (acute) lower respiratory infection
CPT/HCPCS: 93005; 99283